=== PATIENT | male | born 1940 | race Caucasian/White ===

== ENCOUNTER 2016-09-26 18:23 | Observation (INO) ==
[2016-09-26] MEDS ORDERED: NITROGLYCERIN 2% OINT 1 INCH/GM PACK TOP STA (19:56)
[2016-09-26] MEDS ORDERED: ALUM/MAG/SIMETH/LIDO VISC 1:1 30 ML BOTTLE PO STA (19:56)
[2016-09-26] MEDS ORDERED: ONDANSETRON 4 MG/2 ML VIAL IV STA (19:56)
[2016-09-26] MEDS ORDERED: ASPIRIN 325 MG TABLET PO STA (19:56)
--- NOTE | 2016-09-26 20:02 | EKG Report ---
Stationary ECG Study [facility] Test Date: 09/26/2016 6:49:16 PM Pat Name: AIMEE OCHOA Department: Room: 265 Gender: M [employer] Specialist: : 1940 Requested by: Desmond Carlisle Order Number: [id number] Reading MD: MARIETTA CHAVEZ Intervals [place] Rate: 65 P: 67 [place]: 200 QRS: -33 QRSD: 117 T: 32 QT: 426 QTc: 437 Interpretive Statements SINUS RHYTHM LEFT AXIS DEVIATION NON-SPECIFIC INTRAVENTRICULAR CONDUCTION DELAY Electronically Signed On 09-27-16 13:45:36 CDT by MARIETTA CHAVEZ [email or web address]
[2016-09-26] MEDS ORDERED: NITROGLYCERIN 2% OINT 1 INCH/GM PACK TOP ONE (20:03)
[2016-09-26] MEDS ORDERED: ONDANSETRON 4 MG/2 ML VIAL ONE (20:03)
[2016-09-26] MEDS ORDERED: ALUM/MAG/SIMETH/LIDO VISC 1:1 30 ML BOTTLE PO ONE (20:03)
[2016-09-26] MEDS ORDERED: ASPIRIN 325 MG TABLET ONE (20:03)
[2016-09-26 21:21] LABS: Basophils # 0.1 10*3/uL (0.0-0.2); Basophils % 1.5 % (0.0-0.8); Eosinophils # 0.5 10*3/uL (0.0-0.87); Eosinophils % 7.7 % (0.00-10.9); Hematocrit 33.7 VOL% (42.0-52.0); Hemoglobin 11.1 GM/DL (14.0-18.0); Immature Granulocytes % 0.2 %; Immature Granulocytes Absolute 0.01 #; Lymphocytes # 1.9 10*3/uL (1.4-4.0); Lymphocytes % 31.9 % (21.2-54.2); Mean Corpuscular HGB Conc 32.9 GM/DL (32-36); Mean Corpuscular Hemoglobin 31 PG (27-34); Mean Corpuscular Volume 94.7 FL (87-102); Mean Platelet Volume 11.8 FL (9.6-12.0); Monocytes # 0.6 10*3/uL (0.11-0.8); Monocytes % 10.5 % (1.7-12.7); Neutrophils # 2.9 10*3/uL (1.4-7.4); Neutrophils % 48.2 % (38.7-73.9); Platelet Count 129 T/CUMM (130-400); Red Blood Count 3.56 MC/CUMM (3.8-5.5); Red Cell Distribution Width 13.4 % (9.3-17.3)
[2016-09-26 21:28] LABS: PT Patient Result 10.5 SECS
[2016-09-26 21:31] LABS: Alanine Aminotransferase 33 U/L (16-61); Albumin 3.7 G/DL (3.4-5.0); Alkaline Phosphatase 100 U/L (45-117); Aspartate Amino Transferase 30 U/L (0-37); Bilirubin,Total < 0.39 MG/DL (0.2-1.0); Blood Urea Nitrogen 12 MG/DL (7-18); Calcium 8.4 MG/DL (8.5-10.1); Glucose 71 MG/DL (74-106); Magnesium 2.2 MG/DL (1.8-2.4); Osmolality,Calculated 265.2 MOS/KG (273-304); Potassium 3.8 MMOL/L (3.5-5.1); Sodium 134 MMOL/L (136-145); Total Protein 7.1 G/DL (6.4-8.3)
[2016-09-26 21:36] LABS: D-Dimer 5.4 MG/L FEU
--- NOTE | 2016-09-26 21:36 | XRay Report ---
Exam: XR chest 1V portable Indication: Midline chest pain Comparison study: 01/05/2016 Findings: Cardiac silhouette is mildly enlarged, similar to prior. Left hemidiaphragm is elevated, similar to prior. Median sternotomy wiring is again noted. Cardiac silhouette and mediastinal contours otherwise appear similar to prior. Minimal central perihilar interstitial prominence and punctate subcentimeter calcific nodular densities appear unchanged. There is no focal consolidation, pneumothorax or pleural effusion identified. Impression: No acute cardiopulmonary process. Chronic interstitial changes and evidence of prior granulomatous disease. Otherwise, no significant change. PROCEDURE INTERPRETED AT [facility] DEPARTMENT OF RADIOLOGY Final Report Signed by: Anthony Christian
[2016-09-26 22:05] LABS: Apearance,Urine CLEAR (Clear); Bilirubin,Urine Negative (Negative); Blood, Urine Negative (Negative); Glucose,Urine (UA) Negative (Negative); Ketones,Urine Negative (Negative); Nitrite,Urine Negative (Negative); Protein,Urine Negative; RBC,Urine 1 /HPF (0-4); Urine Color Straw (Yellow); Urine Specific Gravity 1.003 (1.001-1.035); Urine Urobilinogen < 2.0 EU/DL (0.2-1.0)
--- NOTE | 2016-09-26 22:42 | CT Report ---
Exam: CT chest PE study The total DLP is 261 mGy*cm. Date: 09/26/2016 9:55 PM Indication: Shortness of breath, positive d-dimer, chest pain Comparison: Prior CT PE protocol April 18, 2010 Technical: Images were obtained from the thoracic inlet through the lung bases with 80 cc of Omnipaque 350 with axial and coronal imaging available for review. Dose reduction: This CT exam was performed using one or more of the following dose reduction techniques: Automated exposure control, automated adjustment of the mA and/or KV according to patient size, or use of iterative reconstruction technique. Findings: Pulmonary arteries:Pulmonary arteries are patent and well-opacified with no filling defects to suggest pulmonary emboli. Mediastinum/vessels/lymph nodes: Heart and great vessels appear unremarkable. There is no evidence of pericardial effusion. The aorta and great vessels appear widely patent. There is no adenopathy in the chest. Lungs: Lungs are predominantly clear. Minimal atelectasis is noted within the left lung base. There is also minimal ground glass opacity within the left lung base and minimal infectious/inflammatory tracer not excluded. Upper lungs are clear. There is no pneumothorax. There is no significant pleural effusion. Central airways are patent. Thyroid: Thyroid gland appears within normal limits. No acute abnormality is identified within the visualized upper abdomen. BONES: No acute or suspicious appearing osseous abnormalities are identified. Impression: No acute pulmonary emboli. Minimal left basilar atelectasis and possible adjacent minimal infectious/inflammatory infiltrates. PROCEDURE INTERPRETED AT [facility] DEPARTMENT OF RADIOLOGY Final Report Signed by: Anthony Christian
[2016-09-26] MEDS ORDERED: ENOXAPARIN 100 MG/ML SYRINGE SUBCUT STA (22:58)
[2016-09-26 23:00] LABS: Barbiturates Screen,Urine Positive (Negative); Benzodiazepines Screen,Urine Negative (Negative); Cannabinoid Screen,Urine Negative (Negative); Opiate Screen,Urine Negative (Negative); Phencyclidine Screen,Urine Negative (Negative)
--- NOTE | 2016-09-26 23:12 | Emergency Department Note ---
Naman Douglas Mantricia, am scribing for, and in the presence of, Desmond Shepard MD 19:59. Devyn Douglas Charles R, MD, personally performed the services described in this documentation, ascribed by Natacha Florence in my presence, and it is both accurate and complete 311 . Arrival - Arrival Chief Complaint: Chest Pain Stated Complaint: chest pain ED Nursing Triage Note: C/O CHEST PAIN WITH ONSET AT [facility] 1750 TODAY. +LEFT ARM PAIN +SOB Mode of Arrival: Stretcher Limitations: No Limitations Source: Patient, Significant other, Family Time Seen by Provider: 09/26/16 18:55 - History of Present Illness HPI Narrative: Pt is a 76 y/o white male arriving to ED by EMS with c/o chest pain that onset around 1800 today. Pt also reports LUE pain, right eye pain, and SOB. He states that he was coming from the bathroom taking a bath and as he went to sat in his recliner afterwards, his chest and shoulder began to hurt. He states that at the time his pain was 8/10; however, since then, the pt took NTG and the pain has calmed to 2/10. Pt reports having a bypass in [address] Montoya. In 2004 , pt's EKG was normal, similar to the current situation. He also reports being weak and pallor for about 2 weeks. 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 He has a PMHx of seizures and is currently taking aspirin, but denies blood thinners. Onset (ago): day(s) Consistency: constant Severity: mild Severity scale (1-10): 3 Allergies/Adverse Reactions: Allergies Allergy/AdvReac Type Severity Reaction Status Date / Time carbamazepine [From Tegretol] Allergy ITCHING Verified 01/05/16 10:47 divalproex sodium Allergy Verified 01/05/16 10:47 [From Depakote] Penicillins Allergy Verified 01/05/16 10:47 morphine AdvReac Verified 01/05/16 10:47 Zolpidem [From Ambien] AdvReac Verified 01/05/16 10:47 Home Medications: Home Medications Medication Instructions Recorded Confirmed Type Alendronate Sodium 70 mg PO Q7DAY 01/05/16 09/26/16 History Amiodarone HCl [Pacerone] 200 mg PO DAILY 01/05/16 09/26/16 History Amlodipine Besylate 2.5 mg PO DAILY 01/05/16 09/26/16 History Aspirin EC Tab 81 mg PO DAILY 01/05/16 09/26/16 History Calcium Citrate/Vitamin D3 1 tablet PO BID 01/05/16 09/26/16 History [Calcium Citrate-Vit D3 Tablet] Carvedilol [Coreg] 3.125 mg PO BID 01/05/16 09/26/16 History Levothyroxine Tab [Synthroid Tab] 50 mcg PO DAILY@0700 01/05/16 09/26/16 History Lisinopril 10 mg PO DAILY 01/05/16 09/26/16 History Multivitamin (Centrum) [Centrum 1 tablet PO DAILY 01/05/16 09/26/16 History Tab] Omeprazole [Prilosec] 20 mg PO DAILY 01/05/16 09/26/16 History PHENobarbital [Phenobarbital] 32.4 mg PO DAILY 01/05/16 09/26/16 History PHENobarbital [Phenobarbital] 97.2 mg PO BEDTIME 01/05/16 09/26/16 History Pravastatin [Pravachol] 40 mg PO BEDTIME 01/05/16 09/26/16 History levETIRAcetam [Keppra] 2 tablet PO BID 09/26/16 09/26/16 History Review of System - Review of System 12 point system: reviewed and no additional remarkable complaints except as stated - Review of System Constitutional: Absent: chills, diaphoresis, fever Eyes: Present: pain (right ). Absent: discharge, redness Head/Ears/Nose/Throat: Absent: earache, epistaxis Respiratory: Absent: cough, respiratory distress, wheezing Cardiovascular: Present: chest pain, dyspnea on exertion. Absent: syncope Gastrointestinal: Absent: abdominal pain, nausea, vomiting, diarrhea Genitourinary male: Absent: urgency, dysuria, frequency Musculoskeletal: Present: arm pain. Absent: back pain, lower back pain, leg pain, neck pain Skin: Absent: rash, lesions Neurological: Absent: headache, weakness Psychiatric: Absent: anxiety, depression Medical,Surgical,& Family Hx - Medical History Cardio: History of: CAD, Hypertension, [place] Neurology: History of: Cerebrovascular Accident, Seizures HEENT: History of: Eye Problem, HEENT Problems Musculoskeletal: History of: Amputation, Musculoskeletal Problems (osteomyelitis ) Hematology: No history of: Anemia Other: No history of: Cancer - Surgical History Cardiac Surgeries: Sugical HX of: Femoral-Popliteal Bypass Graft, Carotid Endarterectomy HEENT Surgeries: Surgical HX of: Carotid Endarterectomy Abdominal Surgeries: Surgical HX of: EGD ([id number]) - Family History Family History: Reports;: Family Cancer, Family Heart Disease - Social History Smoking Status: Never smoker Frequency of Alcohol Use: None Type of Drug Use: None Exam Vital Signs: Vital Signs Temperature 97.9 F 09/26/16 18:30 Pulse Rate 66 09/26/16 18:30 Respiratory Rate 19 09/26/16 19:00 Blood Pressure 167/82 09/26/16 18:30 O2 Sat by Pulse Oximetry 98 09/26/16 18:30 - General General appearance: alert, in no apparent distress - Head Head exam: Present: atraumatic, normocephalic, normal inspection - Eye Eye exam: Present: normal appearance, PERRL, EOMI - ENT ENT exam: Present: normal exam, normal oropharynx, mucous membranes moist, TM's normal bilaterally, normal external ear exam - Neck Neck exam: Present: normal inspection, full ROM, trachea midline. Absent: tenderness - Chest Chest inspection: Present: normal inspection, symmetric chest wall rise. Absent : tenderness - Respiratory Respiratory exam: Present: normal lung sounds bilaterally - Cardiovascular Cardiovascular exam: Present: regular rate, normal rhythm, normal heart sounds - Abdominal Exam Abdominal exam: Present: soft, normal bowel sounds. Absent: distention, tenderness, guarding, rebound - Extremities Exam Extremities exam: Present: full ROM, normal capillary refill, other (+1 edema to RLE; left AKA). Absent: tenderness, pedal edema - Back Exam Back exam: Present: normal inspection, full ROM. Absent: tenderness - Neurological Exam Neurological exam: Present: alert, oriented X3, CN II-XII intact, normal gait, reflexes normal - Psychiatric Psychiatric exam: Present: normal affect, normal mood - Skin Skin exam: Present: warm, dry, intact, normal color Course - Consultations Consultation #1: Dr. White will admit patient Time: 23:11 Results - Labs CBC & BMP: 09/26/16 18:52 05/02/17 18:52 Lab Results: I have reviewed the patients labs Disposition Clinical Impression: Chest pain Case discussed with: patient, patient's family Disposition: Still a Patient Condition: Stable Time of Disposition: 22:56
[2016-09-26] MEDS ORDERED: ENOXAPARIN 80 MG/0.8 ML SYRINGE SUBCUT ONE (23:51)
[2016-09-27] MEDS ORDERED: POTASSIUM CHLORIDE 20 MEQ TABLET PO PRN (00:21)
[2016-09-27] MEDS ORDERED: MAGNESIUM SULF RIDER 2 GM in PREMIX 1 EACH IV PRN (00:21)
[2016-09-27] MEDS ORDERED: ONDANSETRON 4 MG/2 ML VIAL IV PRN (00:21)
[2016-09-27] MEDS ORDERED: MAGNESIUM SULF RIDER 4 GM in PREMIX 1 EACH IV PRN (00:21)
[2016-09-27] MEDS: SODIUM CHLORIDE 0.9% 1,000 ML IV SCH ×2 (01:08→09:36)
[2016-09-27] MEDS: NITROGLYCERIN 2% OINT 1 INCH/GM PACK TOP SCH ×3 (01:09→11:03)
[2016-09-27 04:40] LABS: Basophils # 0.1 10*3/uL (0.0-0.2); Basophils % 1.2 % (0.0-0.8); Eosinophils # 0.4 10*3/uL (0.0-0.87); Eosinophils % 5.9 % (0.00-10.9); Hematocrit 33.7 VOL% (42.0-52.0); Hemoglobin 11.1 GM/DL (14.0-18.0); Immature Granulocytes % 0.1 %; Immature Granulocytes Absolute 0.01 #; Lymphocytes # 1.9 10*3/uL (1.4-4.0); Lymphocytes % 27.4 % (21.2-54.2); Mean Corpuscular HGB Conc 32.9 GM/DL (32-36); Mean Corpuscular Hemoglobin 31 PG (27-34); Mean Corpuscular Volume 95.2 FL (87-102); Mean Platelet Volume 11.9 FL (9.6-12.0); Monocytes # 0.7 10*3/uL (0.11-0.8); Neutrophils # 3.7 10*3/uL (1.4-7.4); Neutrophils % 54.4 % (38.7-73.9); Platelet Count 130 T/CUMM (130-400); Red Blood Count 3.54 MC/CUMM (3.8-5.5); Red Cell Distribution Width 13.4 % (9.3-17.3); White Blood Count 6.7 T/CUMM (4-12)
[2016-09-27 05:19] LABS: Albumin 3.3 G/DL (3.4-5.0); Bilirubin,Total 0.5 MG/DL (0.2-1.0); Calcium 8.2 MG/DL (8.5-10.1); Magnesium 2.3 MG/DL (1.8-2.4); Osmolality,Calculated 269.1 MOS/KG (273-304); Potassium 3.8 MMOL/L (3.5-5.1); Risk Ratio 2.9; Total Protein 6.5 G/DL (6.4-8.3); VLDL CHOLESTEROL 25.2 MG/DL
[2016-09-27] MEDS: LEVOTHYROXINE 50 MCG TABLET PO SCH (06:27)
--- NOTE | 2016-09-27 06:46 | EKG Report ---
Stationary ECG Study [facility] Test Date: 09/27/2016 2:55:19 AM Pat Name: AIMEE OCHOA Department: Room: 265 Gender: M [employer] Operator: : 1940 Requested by: Desmond Carlisle Order Number: [id number] Reading MD: MARIETTA CHAVEZ Intervals [place] Rate: 62 P: 67 DC: 207 QRS: -46 QRSD: 112 T: 58 QT: 461 QTc: 465 Interpretive Statements SINUS RHYTHM LEFT AXIS DEVIATION NONSPECIFIC INTRAVENTRICULAR CONDUCTION DELAY NONSPECIFIC T WAVE ABNORMALITY LONG QT INTERVAL Electronically Signed On 09-27-16 13:52:13 CDT by MARIETTA CHAVEZ [email or web address]
--- NOTE | 2016-09-27 08:28 | XRay Report ---
Referring Physician: Desmond Shepard Exam: XR chest 1V portable Date: September 27, 2016 at 6:11 AM Reason: Shortness of breath Comparison: Chest one view portable September 26, 2016 Findings: The cardiac silhouette is again mildly enlarged, and the patient is status post sternotomy. There is persistent mild elevation of the left hemidiaphragm.. There are also mild opacities at the left lung base which are favored to represent atelectasis. No pneumothorax or pleural effusion is identified. The osseous structures appear stable. Impression: There has been no significant change. PROCEDURE INTERPRETED AT [facility] DEPARTMENT OF RADIOLOGY Final Report Signed by: Dr. Kellen Patiño
[2016-09-27] MEDS ORDERED: CLOPIDOGREL 300 MG TABLET PO ONE (08:43)
[2016-09-27] MEDS ORDERED: DIAZEPAM 5 MG TABLET PO ONE (08:45)
[2016-09-27] MEDS ORDERED: diphenhydrAMINE CAP 25 MG CAPSULE PO ONE (08:45)
--- NOTE | 2016-09-27 08:49 | History and Physical Update ---
Sedation H&P Update - History and Physical H&P was reviewed, the patient examined and there: are no changes in the patients condition since last H&P was completed. - Dictation Physical: refer to H&P completed by admitting physician - Physical Exam Mental Status: alert and oriented Heart: regular rate and rhythm Lung: clear to auscultation Abdomen: within normal limits Vitals: within normal limits - Sedation Plan for Sedation: moderate Patient Consent: Procedure disscussed with patient and patinet has consented., Risks and benefits were discussed with patient,including infection,, bleeding, injury to surrounding structures, seizure, temporary nerve, Patient understands and accepts potential risks/benefits and agrees to, proceed. ASA Class: III Airway Assessment: Class II: Soft palate, uvula, fauces visible
[2016-09-27] MEDS ORDERED: OMEPRAZOLE 20 MG CAPSULE PO SCH (09:00)
[2016-09-27] MEDS ORDERED: ASPIRIN EC 81 MG TABLET PO SCH (09:00)
[2016-09-27] MEDS ORDERED: PHENobarbital 30 MG TABLET PO SCH ×2 (09:00→21:00)
[2016-09-27] MEDS: MULTIVITAMIN (CENTRUM) TABLET PO SCH (09:03)
[2016-09-27] MEDS ORDERED: LIDOCAINE 1% 20 ML VIAL ONE (09:03)
[2016-09-27] MEDS: ASPIRIN EC 81 MG TABLET PO SCH (09:04)
[2016-09-27] MEDS: PANTOPRAZOLE 40 MG TABLET PO SCH (09:04)
[2016-09-27] MEDS: LISINOPRIL 10 MG TABLET PO SCH (09:04)
[2016-09-27] MEDS ORDERED: NITROGLYCERIN DRIP 50 MG/250 ML BOTTLE IV ONE (09:04)
[2016-09-27] MEDS: amLODIPine 2.5 MG TABLET PO SCH (09:04)
[2016-09-27] MEDS: CARVEDILOL 3.125 MG TABLET PO SCH ×2 (09:04→20:56)
[2016-09-27] MEDS ORDERED: VERAPAMIL 5 MG/2 ML VIAL ONE (09:04)
[2016-09-27] MEDS ORDERED: HEPARIN/NACL 0.9% 2 UNITS/ML 1,000 ML IV ONE (09:04)
[2016-09-27] MEDS: ENOXAPARIN 80 MG/0.8 ML SYRINGE SUBCUT SCH ×2 (09:04→21:01)
--- NOTE | 2016-09-27 09:04 | Cardiology History & Physical ---
<Niya Berg E - Last Filed: 09/27/16 08:48> Assessment and Plan - Time spent with patient Time spent with patient: Greater than 30 minutes (1) CAD (coronary artery disease) Status: Chronic Assessment and plan: See plan of care listed Current Visit: Yes (2) S/P CABG x 2 Status: Chronic Assessment and plan: See plan of care listed Current Visit: Yes (3) Hypertension Status: Chronic Assessment and plan: See plan of care listed Current Visit: Yes (4) Dyslipidemia Status: Chronic Assessment and plan: See plan of care listed Current Visit: Yes (5) Seizure disorder Status: Chronic Assessment and plan: See plan of care listed Current Visit: No (6) Chest pain Status: Acute Assessment and plan: See plan of care listed Current Visit: Yes (7) Bilateral carotid bruits Status: Acute Assessment and plan: See plan of care listed Current Visit: Yes History of Present Illness Chief complaint: chest pain, known CAD 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 Merrill, 76WM, has risk factors significant for known CAD (S/P CABG February 2004 JACOB - LAD, SVG - PDA), hypertension, HLD. Patient arrived to the ER evaluation of left chest pain which radiated to his left jaw and down his left arm. This occurred while he was working in his garden. He became diaphoretic and short of breath. He took 2 nitroglycerin and eventually got relief. He rates the discomfort as an 8 on a scale to 10 and he is currently chest pain- free. He has noticed over the past year and a decline in his exercise tolerance. While working in his garden this year, he finds that he becomes more short of breath and requires rest frequently. Last year, he did not have these symptoms. His cardiac biomarkers are negative, EKG does not reveal an acute event. Dr. White is present and will await further recommendations from him. ASSESSMENT/PLAN: 1. CHEST PAIN CONCERNING FOR ANGINA - Dr. White has discussed with patient and fmily options for work-up. They prefer [facility]. Will proceed this morning 2. KNOWN CAD S/P CABG 2003 - JACOB - LAD, SVG - PDA. 3. HYPERTENSION - reports usually well-controlled. Adjust medications accordingly during hospital stay. 4. DYSLIPIDEMIA - FLP in the morning. Continue lipid lowering agent 5. SEIZURE DISORDER - No seizure activity in several years 6. CAROTID DISEASE - bilateral bruits noted. Will order carotid US. S/P carotid endarterectomy [facility] 7. PAF - no recent palpitations. Takes Amiodorone. Home Medications Medication Instructions Recorded Confirmed Type Amiodarone HCl [Pacerone] 200 mg PO DAILY 01/05/16 09/26/16 History Amlodipine Besylate 2.5 mg PO DAILY 01/05/16 09/26/16 History Aspirin EC Tab 81 mg PO DAILY 01/05/16 09/26/16 History Calcium Citrate/Vitamin D3 1 tablet PO BID 01/05/16 09/26/16 History [Calcium Citrate-Vit D3 Tablet] Carvedilol [Coreg] 3.125 mg PO BID 01/05/16 09/26/16 History Levothyroxine Tab [Synthroid Tab] 50 mcg PO DAILY@0700 01/05/16 09/26/16 History Lisinopril 10 mg PO DAILY 01/05/16 09/26/16 History Multivitamin (Centrum) [Centrum 1 tablet PO DAILY 01/05/16 09/26/16 History Tab] Omeprazole [Prilosec] 20 mg PO DAILY 01/05/16 09/26/16 History PHENobarbital [Phenobarbital] 32.4 mg PO BEDTIME 01/05/16 09/27/16 History PHENobarbital [Phenobarbital] 97.2 mg PO DAILY 01/05/16 09/27/16 History Pravastatin [Pravachol] 40 mg PO BEDTIME 01/05/16 09/26/16 History levETIRAcetam [Keppra] 2 tablet PO BID 09/26/16 09/26/16 History Allergies Allergy/AdvReac Type Severity Reaction Status Date / Time carbamazepine [From Tegretol] Allergy ITCHING Verified 01/05/16 10:47 divalproex sodium Allergy Verified 01/05/16 10:47 [From Depakote] Penicillins Allergy Verified 01/05/16 10:47 morphine AdvReac Verified 01/05/16 10:47 Zolpidem [From Ambien] AdvReac Verified 01/05/16 10:47 Review of systems: REVIEW OF SYSTEMS: - Constitutional Constitutional: Present: Fatigue. Absent: syncope, anorexia, night sweats - EENT Eyes: Absent: blurry vision, loss of vision, diplopia Ears: Absent: decreased hearing, ear pain, ear discharge - Cardiovascular Cardiovascular: Present: chest pain with exertion, dyspnea on exertion. Denies edema, palpitations. Absent: chest pain with deep breath, claudication - Respiratory Respiratory: Present: GALEANA, denies cough. Absent: wheezing, hemoptysis, change in phlegm color - Gastrointestinal Gastrointestinal: Denies constipation. Absent: abdominal pain, hematemesis, hematochezia, melena, change in bowel habits, nausea - Genitourinary Genitourinary: Absent: difficulty urinating, dysuria, urinary hesitancy, flank pain - Musculoskeletal Musculoskeletal: Present: back pain Absent: joint swelling, muscle cramps, muscle weakness - Neurological Neurological: Present: normal gait with left lower extremity prosthesis without frequent falls. Absent: dizziness, hemiparesis - Psychiatric Psychiatric: Absent: anxiety, depression, difficulty concentrating - Endocrine Endocrine: Absent: cold intolerance, heat intolerance, polyuria, polyphagia, polydipsia - Hematologic/Lymphatic Hematologic/Lymphatic: Present: easy bruising. Absent: easy bleeding -Integumentary Integumentary: Absent: lesions, rashes, skin breakdown Medical,Surgical,& Family Hx - Medical History Cardio: History of: Cardiac Dysrhythmia (Atrial fib), CAD, Hypertension, [place] Neurology: History of: Cerebrovascular Accident, Seizures HEENT: History of: Eye Problem, HEENT Problems Endocrine: History of: Thyroid Disorder Musculoskeletal: History of: Amputation (R leg AKA), Musculoskeletal Problems ( osteomyelitis) Hematology: No history of: Anemia Other: No history of: Cancer - Surgical History Cardiac Surgeries: Sugical HX of: Femoral-Popliteal Bypass Graft, Carotid Endarterectomy Thoracic Surgeries: Patient denies;: Organ Transplant HEENT Surgeries: Surgical HX of: Carotid Endarterectomy Abdominal Surgeries: Surgical HX of: EGD ([id number]) - Family History Family History: Reports;: Family Cancer, Family Heart Disease - Social History Smoking Status: Never smoker Have you smoked in the last 12 months: No Frequency of Alcohol Use: None Type of Drug Use: None Marital Status: Lives With:: Spouse Functional capacity: independent ambulation Cardiology Physical Exam - Constitutional Vitals: Vital Signs Temp Pulse Resp BP Pulse Ox 97.6 F 56 L 20 144/65 96 09/27/16 08:00 09/27/16 08:00 09/27/16 08:00 09/27/16 08:00 09/27/16 08:00 Intake and Output 09/26/16 09/27/16 09/27/16 23:59 07:59 15:59 Output Total 400 / 400 Balance -400 / -400 Output: Urine 400 / 400 Other: Voiding Method Urinal Weight 83.234 kg Patient Weight 09/27/16 23:59 Weight 83.234 kg General: [Appears well with no apparent distress.] [Pleasant and cooperative. ] [Appears comfortable.] HEENT: [PERRL, normocephalic, atraumatic. Mucous membranes moist. No jaundice noted. Conjunctiva moist and clear, sclerae anicteric] Neck: No JVD/HJR, no thyromegaly or lymphadenopathy noted. Bilateral carotid bruits Cardiac: [Regular rate and rhythm.] [No obvious murmur rub or gallop.] Lungs: [Clear to auscultation without accessory muscle use to assist the respiratory pattern.] Not requiring oxygen Abdomen: Soft, bowel sounds normoactive. Nontender and nondistended. No abdominal bruit or thrill noted. No masses noted. Musculoskeletal: No fluid collection. Decreased range of motion is noted. Extremities: No clubbing, cyanosis noted. [ No edema noted.] Upper extremity pulses 2+. Right lower extremity pulse 2+. Left above-knee amputation. Skin: No unusual lesions or rashes. No skin breakdown appreciated. Neuro: Awake, alert and oriented 3. Moves all extremities well without hemiparesis or paralysis. No essential tremor is appreciated. Result/EKG - Labs CBC & BMP: 09/27/16 03:17 09/27/16 03:17 Lab Results: I have reviewed the past 24 hour labs Labs: Laboratory Results - last 24 hr 09/27/16 09/27/16 09/27/16 00:09 03:17 03:17 WBC 6.7 RBC 3.54 L Hgb 11.1 L Hct 33.7 L MCV 95.2 MCH 31 MCHC 32.9 RDW 13.4 Plt Count 130 MPV 11.9 Neut % (Auto) 54.4 Lymph % (Auto) 27.4 [place] % (Auto) 11.0 Eos % (Auto) 5.9 Baso % (Auto) 1.2 H Neut # (Auto) 3.7 Lymph # (Auto) 1.9 [place] # (Auto) 0.7 Eos # (Auto) 0.4 Baso # (Auto) 0.1 Immature Gran % 0.1 Nucleated RBC % 0.0 Immature Gran # 0.01 Nucleated RBCs # 0.00 Sodium Potassium Chloride Carbon Dioxide Anion Gap BUN Creatinine GFR Calculation BUN/Creatinine Ratio Glucose Calculated Osmolality Calcium Magnesium Total Bilirubin AST ALT Alkaline Phosphatase Troponin I 0.042 0.038 B-Natriuretic Peptide Total Protein Albumin Globulin Albumin/Globulin Ratio Triglycerides Cholesterol LDL Cholesterol VLDL Cholesterol HDL Cholesterol Heart Disease Risk Ratio 09/27/16 09/27/16 03:17 03:17 WBC RBC Hgb Hct MCV MCH MCHC RDW Plt Count MPV Neut % (Auto) Lymph % (Auto) [place] % (Auto) Eos % (Auto) Baso % (Auto) Neut # (Auto) Lymph # (Auto) [place] # (Auto) Eos # (Auto) Baso # (Auto) Immature Gran % Nucleated RBC % Immature Gran # Nucleated RBCs # Sodium 135 L Potassium 3.8 Chloride 100 Carbon Dioxide 26 Anion Gap 12.8 BUN 12 Creatinine 0.80 GFR Calculation 101 BUN/Creatinine Ratio 15.00 Glucose 93 Calculated Osmolality 269.1 L Calcium 8.2 L Magnesium 2.3 Total Bilirubin 0.50 AST 30 ALT 32 Alkaline Phosphatase 98 Troponin I B-Natriuretic Peptide 246 H Total Protein 6.5 Albumin 3.3 L Globulin 3.2 Albumin/Globulin Ratio 1.0 L Triglycerides 126 Cholesterol 145 LDL Cholesterol 85.0 VLDL Cholesterol 25.2 HDL Cholesterol 50 Heart Disease Risk Ratio 2.90 - Diagnostic Findings Procedure: Chest x-ray: report reviewed by me, CT - chest: report reviewed by wa - EKG EKG results: interpreted by wa EKG shows: sinus rhythm <Tahmina White - Last Filed: 09/27/16 10:25> Assessment and Plan (1) Unstable angina Status: Acute Current Visit: Yes (2) Bilateral carotid bruits Status: Acute Current Visit: Yes (3) CAD (coronary artery disease) Status: Chronic Current Visit: Yes (4) Dyslipidemia Status: Chronic Current Visit: Yes (5) Hypertension Status: Chronic Current Visit: Yes (6) S/P CABG x 2 Status: Chronic Current Visit: Yes (7) Seizure disorder Status: Chronic Current Visit: No History of Present Illness History of present illness: Mr. Merrill is a 76 year old male Cardiology Physical Exam - Constitutional Vitals: Vital Signs Temp Pulse Resp BP Pulse Ox 97.6 F 56 L 20 144/65 96 09/27/16 08:00 09/27/16 08:00 09/27/16 08:00 09/27/16 08:00 09/27/16 08:00 Intake and Output 09/26/16 09/27/16 09/27/16 23:59 07:59 15:59 Output Total 400 / 400 Balance -400 / -400 Output: Urine 400 / 400 Other: Voiding Method Urinal Weight 83.234 kg Patient Weight 09/27/16 23:59 Weight 83.234 kg Result/EKG - Labs CBC & BMP: 09/27/16 03:17 09/27/16 03:17 Labs: Laboratory Results - last 24 hr 09/27/16 09/27/16 09/27/16 00:09 03:17 03:17 WBC 6.7 RBC 3.54 L Hgb 11.1 L Hct 33.7 L MCV 95.2 MCH 31 MCHC 32.9 RDW 13.4 Plt Count 130 MPV 11.9 Neut % (Auto) 54.4 Lymph % (Auto) 27.4 [place] % (Auto) 11.0 Eos % (Auto) 5.9 Baso % (Auto) 1.2 H Neut # (Auto) 3.7 Lymph # (Auto) 1.9 [place] # (Auto) 0.7 Eos # (Auto) 0.4 Baso # (Auto) 0.1 Immature Gran % 0.1 Nucleated RBC % 0.0 Immature Gran # 0.01 Nucleated RBCs # 0.00 Sodium Potassium Chloride Carbon Dioxide Anion Gap BUN Creatinine GFR Calculation BUN/Creatinine Ratio Glucose Calculated Osmolality Calcium Magnesium Total Bilirubin AST ALT Alkaline Phosphatase Troponin I 0.042 0.038 B-Natriuretic Peptide Total Protein Albumin Globulin Albumin/Globulin Ratio Triglycerides Cholesterol LDL Cholesterol VLDL Cholesterol HDL Cholesterol Heart Disease Risk Ratio 09/27/16 09/27/16 03:17 03:17 WBC RBC Hgb Hct MCV MCH MCHC RDW Plt Count MPV Neut % (Auto) Lymph % (Auto) [place] % (Auto) Eos % (Auto) Baso % (Auto) Neut # (Auto) Lymph # (Auto) [place] # (Auto) Eos # (Auto) Baso # (Auto) Immature Gran % Nucleated RBC % Immature Gran # Nucleated RBCs # Sodium 135 L Potassium 3.8 Chloride 100 Carbon Dioxide 26 Anion Gap 12.8 BUN 12 Creatinine 0.80 GFR Calculation 101 BUN/Creatinine Ratio 15.00 Glucose 93 Calculated Osmolality 269.1 L Calcium 8.2 L Magnesium 2.3 Total Bilirubin 0.50 AST 30 ALT 32 Alkaline Phosphatase 98 Troponin I B-Natriuretic Peptide 246 H Total Protein 6.5 Albumin 3.3 L Globulin 3.2 Albumin/Globulin Ratio 1.0 L Triglycerides 126 Cholesterol 145 LDL Cholesterol 85.0 VLDL Cholesterol 25.2 HDL Cholesterol 50 Heart Disease Risk Ratio 2.90
[2016-09-27] MEDS: CALCIUM (CITRATE)/VITAMIN D 200 MG-125 UNIT TABLET PO SCH ×2 (09:05→20:56)
[2016-09-27] MEDS: AMIODARONE 200 MG TABLET PO SCH (09:05)
[2016-09-27] MEDS ORDERED: MIDAZOLAM 2 MG/2 ML VIAL ONE (09:30)
[2016-09-27] MEDS ORDERED: fentaNYL 100 MCG/2 ML VIAL ONE (09:30)
[2016-09-27] MEDS ORDERED: ENOXAPARIN 60 MG/0.6 ML SYRINGE ONE (09:39)
[2016-09-27] MEDS ORDERED: EPTIFIBATIDE 20,000 MCG/10 ML VIAL ONE (09:56)
[2016-09-27] MEDS ORDERED: ACETAMINOPHEN 325 MG TABLET PO PRN (10:25)
[2016-09-27] MEDS ORDERED: ZALEPLON 5 MG CAPSULE PO PRN (10:25)
--- NOTE | 2016-09-27 10:31 | Cardiac Catheterization ---
Date of Procedure:: 09/27/16 Pre-op Diagnosis: Unstable angina Post-op diagnosis: other (UA secondary to high grade (80%)) Procedure: Procedures: 1. Left heart catheterization resting hemodynamics 2. Selective left and right coronary angiography 3. Saphenous vein graft injection to the PDA 4. Selective left SHAUNA graft injection in situ to the LAD 5. Percutaneous coronary intervention with drug-eluting stent (2.5 x 8 mm science drug-eluting stent) to the proximal portion of the newtok ramus intermedius After signed an informed consent was obtained, the patient was prepped and draped in standard fashion for left radial access. Time out was recorded. 0.5 mL of 1% lidocaine were infiltrated in the skin and subcutaneous tissue overlying the right radial artery and Seldinger technique was utilized with a Angiocath to obtain access to the right radial artery. A [employer] glide wire was then advanced into the midforearm under fluoroscopic guidance. The Angiocath was removed and a 6 Swiss Terumo glide sheath was placed over the Glidewire. The sheath was aspirated and flushed and then 5 mg of verapamil and 200 g of nitroglycerin were given through the sheath. At this time a 6 Swiss JL4 was advanced over the wire in the central aorta the left main coronary was selectively engaged. There was some difficulty reaching the ascending aorta from the angulation of the takeoff of the left subclavian however this was performed and multiple orthogonal views of the left coronary artery were obtained. At this time an exchange length J-wire was used to remove the JL4 catheter and left in the ascending aorta and a JR 4 diagnostic cath was advanced over the wire in the central aorta the right coronary slightly engaged was pulled back in the saphenous vein graft to the PDA was selectively engaged multiple orthogonal views were obtained. The catheter was then pulled back into the left subclavian and selective engagement of the SHAUNA in situ as a graft to the LAD was obtained in multiple orthogonal views. The exchange length wire was then advanced through the JR for catheter repositioned in the a sending aorta the JR4 catheter was removed. The sheath was aspirated and flushed. The room was set up for the intervention mode on the background of 600 mg load of clopidogrel approximately 45 minutes prior to coming to the cath suite a single bolus of Integrilin was given. Lovenox have been given for radial access. At this time an EBU 3.5 guiding cath was advanced over the wire in the central aorta but it was too short for access to the left main with adequate support. He was exchanged over the wire for an EBU 4.0 guiding catheter which went into the ventricle. Ventricular pressure measurements were measured and pullback measurements also performed. The EBU guiding catheter was used to engage the left main with excellent support. At this time a 180 cm [place] blue wire was advanced through the guiding catheter into the distal ramus intermediate. This was followed by a 2.0 x 8 mm apex balloon which was used to make a single inflation to 8 ale held for 19 seconds the predilatation balloon was removed 80 g demonstrated yielding of the lesion at this time a 2.5 x 8 mm Xience Alpine drug-eluting stent was taken to the area of stenosis and inflated to nominal atmospheres of 10 for to help for 21 seconds the stent balloon was removed. Ultimately a 2.5 x 8 mm NC Quantum balloon was taken to the stent and inflated to 16 ale and held stable for 23 seconds. Postdilatation balloon was removed 2 orthogonal views were obtained without the wire. The J-wire was then used to exchange the guide catheter. The sheath was aspirated and flushed The radial saw operator reviewed the films. And a TR band was placed over the glide sheath and used for hemostasis. Total contrast exposure 220 cc of omnipaque Total x-ray exposure: 13.6 min fluoroscopy time and 914 mGy air Kerma Findings: 1. EF not assessed 2. Hemodynamics LV: 108/3 EDP:12 Ao:144/54 3. Left main: Angiographically normal 4: Left anterior descending artery: There is moderate mid LAD atheroma approximately 70% before the anastomosis of the JACOB to the LAD. There is also a proximal lesion that is approximately 40-50%. These lesions are very short. There is competitive flow seen from the JACOB. 5. There is a small but present JACOB to the LAD. Is very difficult to feel from the angulation but there is excellent flow down the vessel. There is no anastomosis stenosis seen. The newtok vessels well visualized on newtok injection as well as the SHAUNA injection 6: Left circumflex artery: Left circumflex is a nondominant vessel insertion primarily is a large OM type distribution. There is very little circumflex in the AV groove. 7: There is a large ramus intermedius that is diffusely diseased in the proximal segment however there is a very focal proximal stenosis of 80+%. It is hazy in the proximal segment but does not appear to have a focal high-grade stenosis. 8: Right coronary artery: 100% occluded in the proximal segment the takeoff the first acute marginal 9: There is a very healthy looking vein graft to the midportion of the right PDA. This supplies the distal PDA and antegradely fills the proximal PDA and posterior lateral branch. There are tandem lesions approximately 40-50% in the proximal PDA they can inhibit flow from the graft to the posterior lateral branch. They do not appear to be severe but is diffusely diseased. Assessment: 1. Unstable angina secondary to high-grade radius intermedius stenosis status post successful PCI with AURA as above 2. Normal resting hemodynamics 3. Small but functioning SHAUNA in situ to the LAD 4. Healthy vein graft to a small PDA with antegrade flow to the posterior lateral branch Plan: 1. Therapeutic lifestyle changes. 2. Medical management and cardiac rehabilitation consultation Implants: 2.5 x 8 mm Xience AURA to the RI Anesthesia: moderate conscious sedation Surgeon / Physician: Tahmina White Zone Supervisor Firearms: none Estimated blood loss: none Specimens: none sent Condition: stable Disposition: floor - Medications / Follow-up
--- NOTE | 2016-09-27 10:55 | EKG Report ---
Stationary ECG Study 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
[2016-09-27] MEDS: levETIRAcetam 500 MG TABLET PO SCH ×2 (11:02→20:56)
--- NOTE | 2016-09-27 14:35 | ECHO Report ---
Roosevelt Merrill Exam Date: 09/27/2016 11:46 Referring Physician: Technologist: Diaan Gregorio Age: 76 Ht (in): 71 Wt (lb): 183 Gender: M Exam Location: [facility] Echo Indications: chest pain, s/p CAGB x2, dyslipidemia, bilateral carotid bruit BP: 144 / 65 HR: 48 Rhythm: bradycardia Technical Quality: average IMPRESSIONS The overal EF is 45% with no clear regional wall motion abnormality. Diastolic paramenters are most consistent with grad 2 diastolic dysfunction or impaired relaxation. Mild tricuspid valve regurgitation. Tricuspid regurgitation velocities suggest a RVSP of 27 mmHg + RAP. Mild aortic valve regurgitation wtih a pressure halftime of 667 msec. MEASUREMENTS (Male / Female) Normal Values 2D ECHO LV Diastolic Diameter PLAX 5.1 cm 4.2 - 5.9 / 3.9 - 5.3 cm LV Systolic Diameter PLAX 3.4 cm LV Fractional Shortening PLAX 32.6 % IVS Diastolic Thickness 1.0 cm 0.6 - 1.0 / 0.6 - 0.9 cm LVPW Diastolic Thickness 1.1 cm 0.6 - 1.0 / 0.6 - 0.9 cm RV Internal Dim ED PLAX 2.8 cm Aortic Root Diameter 2.8 cm LA Systolic Diameter LX 4.5 cm 3.0 - 4.0 / 2.7 - 3.8 cm DOPPLER TR Peak Velocity 261.0 cm/s TR Peak Gradient 27.2 mmHg FINDINGS Left Ventricle The overal EF is 45% with no clear regional wall motion abnormality. Diastolic paramenters are most consistent with grad 2 diastolic dysfunction or impaired relaxation. Right Ventricle Normal right ventricular size. Right Atrium The right atrium is mildly enlarged. Left Atrium Mildly increased left atrial diameter. Mitral Valve Mild mitral valve sclerosis. Mild mitral valve regurgitation. Aortic Valve Mild aortic valve sclerosis. Mild aortic valve regurgitation wtih a pressure halftime of 667 msec. Tricuspid Valve Morphologically normal tricuspid valve. Mild tricuspid valve regurgitation. Tricuspid regurgitation velocities suggest a RVSP of 27 mmHg + RAP. Pulmonic Valve Morphologically normal pulmonic valve. Mild pulmonary valve regurgitation. Pericardium No pericardial effusion. Aorta Normal size aortic root and proximal ascending aorta. Tahmina White (Electronically Signed) Final Date: 27 Sep 2016 14:35
--- NOTE | 2016-09-27 16:03 | Ultrasound Report ---
History: Coronary artery disease with carotid bruit Date: 09/27/2016 Study: Carotid duplex ultrasound Comparison exam: No previous similar currently available Color Doppler, wave form analysis, and grayscale analysis of the cervical carotid arteries was performed. There is mild to moderate partially calcified plaque in either carotid bulb. Waveform analysis shows proper directional flow of the cervical carotid arteries. There is antegrade flow in either vertebral artery. The distal right ICA measures 5.5 mm diameter; the left measures 5.5 mm diameter. Peak systolic velocities are as follows: Right CCA 74 cm/s Right ICA 103 cm/s Right ECA 48 cm/s Right vertebral 46 cm/s Right IC/CC ratio 1.4 Left CCA 67 cm/s Left ICA 97 cm/s Left ECA 121 cm/s Left vertebral 42 cm/s Left IC/CC ratio 1.4 There is 0-15% diameter reduction narrowing of the right and 16-49% of the left internal carotid artery using indirect NASCET criteria. Ultrasound images were captured and archived. Impression: No hemodynamically significant internal carotid artery stenosis PROCEDURE INTERPRETED AT [facility] DEPARTMENT OF RADIOLOGY Final Report Signed by: Dr. Amarilys Brizuela
[2016-09-27] MEDS ORDERED: PRAVASTATIN 40 MG TABLET PO SCH (21:00)
[2016-09-28 04:51] LABS: Basophils # 0.1 10*3/uL (0.0-0.2); Basophils % 1.1 % (0.0-0.8); Eosinophils # 0.4 10*3/uL (0.0-0.87); Eosinophils % 5.9 % (0.00-10.9); Hematocrit 33.3 VOL% (42.0-52.0); Hemoglobin 11.1 GM/DL (14.0-18.0); Immature Granulocytes % 0.3 %; Immature Granulocytes Absolute 0.02 #; Lymphocytes # 1.6 10*3/uL (1.4-4.0); Lymphocytes % 25.2 % (21.2-54.2); Mean Corpuscular HGB Conc 33.3 GM/DL (32-36); Mean Corpuscular Hemoglobin 31 PG (27-34); Mean Corpuscular Volume 93.5 FL (87-102); Mean Platelet Volume 11.6 FL (9.6-12.0); Monocytes # 0.6 10*3/uL (0.11-0.8); Monocytes % 9.7 % (1.7-12.7); Neutrophils # 3.6 10*3/uL (1.4-7.4); Neutrophils % 57.8 % (38.7-73.9); Platelet Count 133 T/CUMM (130-400); Red Blood Count 3.56 MC/CUMM (3.8-5.5); Red Cell Distribution Width 13.5 % (9.3-17.3); White Blood Count 6.3 T/CUMM (4-12)
[2016-09-28 05:21] LABS: Calcium 8.1 MG/DL (8.5-10.1); Magnesium 2.3 MG/DL (1.8-2.4); Osmolality,Calculated 275.5 MOS/KG (273-304)
[2016-09-28 05:31] LABS: Calcium 8.2 MG/DL (8.5-10.1); Osmolality,Calculated 275.5 MOS/KG (273-304); Potassium 4.1 MMOL/L (3.5-5.1); Risk Ratio 3.06; VLDL CHOLESTEROL 14.8 MG/DL
--- NOTE | 2016-09-28 06:44 | EKG Report ---
Stationary ECG Study [facility] Test Date: 09/28/2016 6:43:48 AM Pat Name: AIMEE OCHOA Department: Room: 265 Gender: M Oral Surgery Assistant: RICH : 1940 Requested by: Laura Calix Order Number: [id number] Santos MD: IOANA ZAMARRIPA Intervals [place] Rate: 67 P: 66 NH: 190 QRS: 126 QRSD: 117 T: -13 QT: 428 QTc: 444 Interpretive Statements SINUS RHYTHM WITH OCCASIONAL SUPRAVENTRICULAR PREMATURE COMPLEXES Electronically Signed On 09-29-16 18:00:24 CDT by IOANA ZAMARRIPA [email or web address]
[2016-09-28] MEDS: LEVOTHYROXINE 50 MCG TABLET PO SCH (06:50)
[2016-09-28 08:07] VITALS: BP 156/72
--- NOTE | 2016-09-28 08:17 | Discharge Summary ---
Hospital Course - Hospital Course Hospital Course: Mr. Merrill is very pleasant 68-year-old gentleman patient of Dr. Robb Marks who came in with what sounded like typical angina. The patient has known coronary disease had coronary bypass grafting in 2003. He underwent left heart catheterization selective coronary angiography and received percutaneous coronary mention of the proximal ramus intermedius with a 2.5 x 8 mm Xience drug -eluting stent with excellent result. He was preloaded with clopidogrel started on clopidogrel post therapy. Access was the left radial the patient had no postprocedure complications. He was discharged home on the a.m. of 2016 he will follow with Dr. Marks in 2 weeks. Prescriptions were E scribe to [facility] on spring. Both labs and radial access site looks good the morning of discharge. Other studies the patient had while in the hospital was transthoracic echo shows ejection fraction approximately 45% please see that report in the EHR. Also because of bilateral carotid bruits he had carotid Dopplers which showed 0- 15% on the right and 16-49% on the left. These were asymptomatic. - Time spent with patient Time with patient DS: Less than 30 minutes Diagnosis - Discharge Diagnosis (1) Unstable angina Status: Acute (2) Bilateral carotid bruits Status: Acute (3) CAD (coronary artery disease) Status: Chronic (4) Dyslipidemia Status: Chronic (5) Hypertension Status: Chronic (6) S/P CABG x 2 Status: Chronic (7) Seizure disorder Status: Chronic Specialty Discharge - Follow Up or Referrals Follow up with: Reymundo Marks MD [Physician] - 2 Weeks (ECG) Discharge Plan - Discharge Data Disposition: Disch To Home/Self Care Condition at Discharge: Stable Discharge Diet: advance to your usual diet Activity: resume usual activities as tolerated Hygiene: no restrictions Weight Bearing at Discharge: full weight bearing Driving: no restrictions Contact your physician if you experience:: fever over 101, Difficulty voiding, Redness or swelling, Nausea/Vomiting, Shortness of breath, Bleeding, pain uncontrolled by pain medications - Discharge Medications New Aspirin EC Tab 81 mg PO DAILY tablet Nitroglycerin Sl Tab [Nitrostat] 0.4 mg SL Q5M PRN #25 tablet PRN Reason: Chest Pain Continue Aspirin EC Tab 81 mg PO DAILY Levothyroxine Tab [Synthroid Tab] 50 mcg PO DAILY@0700 Omeprazole [Prilosec] 20 mg PO DAILY Pravastatin [Pravachol] 40 mg PO BEDTIME Amiodarone HCl [Pacerone] 200 mg PO DAILY Carvedilol [Coreg] 3.125 mg PO BID Lisinopril 10 mg PO DAILY PHENobarbital [Phenobarbital] 32.4 mg PO BEDTIME Multivitamin (Centrum) [Centrum Tab] 1 tablet PO DAILY Calcium Citrate/Vitamin D3 [Calcium Citrate-Vit D3 Tablet] 1 tablet PO BID Amlodipine Besylate 2.5 mg PO DAILY PHENobarbital [Phenobarbital] 97.2 mg PO DAILY levETIRAcetam [Keppra] 2 tablet PO BID Clopidogrel [Plavix] 75 mg PO DAILY #90 tablet - Follow Up or Referral - Forms/Instructions Instructions: Left Heart Catheterization (DC), Heart Healthy Diet (GEN), Coronary Intravascular Stent Placement, Rug Cutter Helper (GEN) Exam - Constitutional Vitals: Period Temp Pulse Resp BP Sys/Agrawal Pulse Ox Last 24 Hr 97.1 F-99.7 F 48-67 16-20 120-156/56-74 93-100 General appearance: normal weight - Head Head exam: Present: normal inspection - Eye Pupils: Present: EVGENY - ENT ENT exam: Present: normal exam - Neck Neck exam: Present: other (Bilateral bruit) - Respiratory Respiratory exam: Present: clear to auscultation bilaterally - Cardiovascular Cardiovascular exam: Present: regular rate and rhythm (No gallop) - GI/Abdominal GI/Abdominal exam: Present: normal bowel sounds - Extremities Exam Extremities exam: Present: other (Status post BKA. Cath site looks good) - Back Exam Back exam: Present: normal inspection - Neurological Exam Neurological exam: Present: alert, oriented X3 - Psychiatric Psychiatric exam: Present: normal affect, normal mood - Skin Skin exam: Present: normal color, warm, dry Discharge Results Procedures and tests throughout hospitalization: 1. Left heart catheterization resting hemodynamics 2. Selective left and right coronary angiography 3. Saphenous vein graft injection to the PDA 4. Selective left SHAUNA graft injection in situ to the LAD 5. Percutaneous coronary intervention with drug-eluting stent (2.5 x 8 mm science drug-eluting stent) to the proximal portion of the [place] ramus intermedius Labs on day of discharge: Labs from last 24 hours 09/28/16 09/28/16 09/28/16 04:12 04:12 04:12 WBC 6.3 RBC 3.56 L Hgb 11.1 L Hct 33.3 L MCV 93.5 MCH 31 MCHC 33.3 RDW 13.5 Plt Count 133 MPV 11.6 Neut % (Auto) 57.8 Lymph % (Auto) 25.2 [place] % (Auto) 9.7 Eos % (Auto) 5.9 Baso % (Auto) 1.1 H Neut # (Auto) 3.6 Lymph # (Auto) 1.6 [place] # (Auto) 0.6 Eos # (Auto) 0.4 Baso # (Auto) 0.1 Immature Gran % 0.3 Nucleated RBC % 0.0 Immature Gran # 0.02 Nucleated RBCs # 0.00 Sodium 139 139 Potassium 4.0 4.1 Chloride 104 103 Carbon Dioxide 29 29 Anion Gap 10.0 11.1 BUN 12 12 Creatinine 1.10 1.00 GFR Calculation 75 84 BUN/Creatinine Ratio 10.00 12.00 Glucose 85 85 Calculated Osmolality 275.5 275.5 Calcium 8.1 L 8.2 L Magnesium 2.3 Triglycerides 74 Cholesterol 147 LDL Cholesterol 85.0 VLDL Cholesterol 14.8 HDL Cholesterol 48 Heart Disease Risk Ratio 3.06 DS: Provider Date of admission: 09/26/16 23:12 Primary care physician: Yrn Levine MD Attending physician on admission: Tahmina White DO Consults: 09/27/16 10:25 Consult to Cardiac Rehabilitation [CONS] Routine Reason for Cardiac Rehabilitation: Risk Factor Modification Discharging clinician: Tahmina White DO
[2016-09-28] MEDS: ENOXAPARIN 80 MG/0.8 ML SYRINGE SUBCUT SCH (08:21)
[2016-09-28] MEDS: MULTIVITAMIN (CENTRUM) TABLET PO SCH (08:21)
[2016-09-28] MEDS: ASPIRIN EC 81 MG TABLET PO SCH (08:21)
[2016-09-28] MEDS: LISINOPRIL 10 MG TABLET PO SCH (08:21)
[2016-09-28] MEDS: levETIRAcetam 500 MG TABLET PO SCH (08:21)
[2016-09-28] MEDS: PHENobarbital 30 MG TABLET PO SCH ×2 (08:22→08:24)
[2016-09-28] MEDS: AMIODARONE 200 MG TABLET PO SCH (08:22)
[2016-09-28] MEDS: amLODIPine 2.5 MG TABLET PO SCH (08:22)
[2016-09-28] MEDS: CARVEDILOL 3.125 MG TABLET PO SCH (08:22)
[2016-09-28] MEDS: PANTOPRAZOLE 40 MG TABLET PO SCH (08:22)
[2016-09-28] MEDS: CALCIUM (CITRATE)/VITAMIN D 200 MG-125 UNIT TABLET PO SCH (08:28)
[2016-09-28] MEDS ORDERED: CLOPIDOGREL 75 MG TABLET PO SCH (09:00)
[2016-09-28] MEDS ORDERED: PHENobarbital 30 MG TABLET PO SCH (21:00)
[2016-10-03] MEDS ORDERED: NON-FORMULARY MEDICATION (Alendronate Sodium [Alendronate Sodium] 70 MG) PO SCH (09:00)
== END 2016-09-28 10:08 | disposition home or self-care (01) ==
LOC: EDUNIT# → EDBD → N.ED 18:23 → N.EDINP 23:12 → INTOOBSV 23:12 → N.TELES 23:39
PROVIDERS: ADMIT Internal Medicine Cardiovascular Disease; ATTEND Internal Medicine Cardiovascular Disease

== ENCOUNTER 2018-07-25 10:48 | Inpatient (IN) ==
[2018-07-25 11:50] LABS: Basophils # 0.1 10*3/uL (0.0-0.2); Eosinophils # 0.2 10*3/uL (0.0-0.87); Eosinophils % 3.5 % (0.00-10.9); Hematocrit 29.5 VOL% (42.0-52.0); Hemoglobin 9.2 GM/DL (14.0-18.0); Immature Granulocytes % 0.4 %; Immature Granulocytes Absolute 0.02 #; Lymphocytes # 1.1 10*3/uL (1.4-4.0); Lymphocytes % 20.8 % (21.2-54.2); Mean Corpuscular HGB Conc 31.2 GM/DL (32-36); Mean Corpuscular Hemoglobin 29 PG (27-34); Mean Corpuscular Volume 93.7 FL (87-102); Mean Platelet Volume 10.8 FL (9.6-12.0); Monocytes # 0.6 10*3/uL (0.11-0.8); Neutrophils # 3.3 10*3/uL (1.4-7.4); Neutrophils % 63.3 % (38.7-73.9); Platelet Count 182 T/CUMM (130-400); Red Blood Count 3.15 MC/CUMM (3.8-5.5); Red Cell Distribution Width 14.4 % (9.3-17.3); White Blood Count 5.2 T/CUMM (4-12)
[2018-07-25 12:02] LABS: PT Patient Result 10.9 SECS
[2018-07-25 12:14] LABS: Albumin 3.2 G/DL (3.4-5.0); Bilirubin,Total 0.8 MG/DL (0.2-1.0); Calcium 8.2 MG/DL (8.5-10.1); Osmolality,Calculated 275.5 MOS/KG (273-304); Total Protein 7.1 G/DL (6.4-8.3)
[2018-07-25] MEDS ORDERED: ACETAMINOPHEN 325 MG TABLET PO PRN (12:45)
[2018-07-25] MEDS ORDERED: ONDANSETRON 4 MG/2 ML VIAL IV PRN (12:45)
[2018-07-25 15:23] LABS: Troponin I 0.648 NG/ML (0.00-0.045)
[2018-07-25] MEDS ORDERED: PANTOPRAZOLE 40 MG TABLET PO PRN (16:03)
[2018-07-25] MEDS ORDERED: NITROGLYCERIN SL 0.4 MG TABLET SL PRN (16:03)
[2018-07-25 17:29] LABS: Troponin I 0.859 NG/ML (0.00-0.045)
[2018-07-25] MEDS ORDERED: ENOXAPARIN 60 MG/0.6 ML SYRINGE SUBCUT ONE (19:57)
[2018-07-25] MEDS: levETIRAcetam 500 MG TABLET PO SCH (20:35)
[2018-07-25] MEDS: DOCUSATE SODIUM 100 MG CAPSULE PO SCH (20:36)
[2018-07-25] MEDS: CALCIUM (CARBONATE)/VITAMIN D 600 MG-400 UNIT TABLET PO SCH (20:36)
[2018-07-25] MEDS ORDERED: PHENobarbital 30 MG TABLET PO SCH (21:00)
[2018-07-25] MEDS ORDERED: SIMVASTATIN 20 MG TABLET PO SCH (21:00)
[2018-07-26] MEDS ORDERED: LEVOTHYROXINE 50 MCG TABLET PO SCH (06:30)
[2018-07-26 07:38] LABS: Basophils # 0.1 10*3/uL (0.0-0.2); Basophils % 1.2 % (0.0-0.8); Eosinophils # 0.2 10*3/uL (0.0-0.87); Eosinophils % 3.7 % (0.00-10.9); Hematocrit 29.4 VOL% (42.0-52.0); Hemoglobin 9.1 GM/DL (14.0-18.0); Immature Granulocytes % 0.4 %; Immature Granulocytes Absolute 0.02 #; Lymphocytes # 1.3 10*3/uL (1.4-4.0); Lymphocytes % 23.3 % (21.2-54.2); Mean Corpuscular Hemoglobin 29 PG (27-34); Mean Corpuscular Volume 93.6 FL (87-102); Mean Platelet Volume 10.5 FL (9.6-12.0); Monocytes # 0.6 10*3/uL (0.11-0.8); Monocytes % 10.1 % (1.7-12.7); Neutrophils # 3.5 10*3/uL (1.4-7.4); Neutrophils % 61.3 % (38.7-73.9); Platelet Count 172 T/CUMM (130-400); Red Blood Count 3.14 MC/CUMM (3.8-5.5); Red Cell Distribution Width 14.6 % (9.3-17.3); White Blood Count 5.6 T/CUMM (4-12)
[2018-07-26 07:53] LABS: Calcium 8.8 MG/DL (8.5-10.1); Osmolality,Calculated 275.7 MOS/KG (273-304); Potassium 4.1 MMOL/L (3.5-5.1)
[2018-07-26 08:19] VITALS: BP 172/81
[2018-07-26] MEDS: CALCIUM (CARBONATE)/VITAMIN D 600 MG-400 UNIT TABLET PO SCH (08:19)
[2018-07-26] MEDS: levETIRAcetam 500 MG TABLET PO SCH (08:20)
[2018-07-26] MEDS: DOCUSATE SODIUM 100 MG CAPSULE PO SCH (08:20)
[2018-07-26] MEDS ORDERED: AMIODARONE 200 MG TABLET PO SCH (09:00)
[2018-07-26] MEDS ORDERED: ASPIRIN EC 81 MG TABLET PO SCH (09:00)
[2018-07-26] MEDS ORDERED: LISINOPRIL 10 MG TABLET PO SCH (09:00)
[2018-07-26] MEDS ORDERED: MULTIVITAMIN (CENTRUM) TABLET PO SCH (09:00)
[2018-07-26] MEDS ORDERED: CARVEDILOL 3.125 MG TABLET PO SCH (09:00)
[2018-07-26] MEDS ORDERED: FERROUS SULFATE 325 MG TABLET PO SCH (09:00)
[2018-07-26] MEDS ORDERED: PANTOPRAZOLE 40 MG TABLET PO SCH (09:00)
[2018-07-26] MEDS ORDERED: PHENobarbital 30 MG TABLET PO SCH (12:00)
[2018-07-31] MEDS ORDERED: Alendronate [Fosamax] 70 MG PO SCH (09:00)
== END 2018-07-26 10:30 | disposition home or self-care (01) | DRG 310 ==
LOC: EDBD → EDUNIT# → N.ED 10:48 → N.EDINP 12:42 → N.TELEN 15:58
PROVIDERS: ADMIT Family Medicine; ATTEND Family Medicine

== ENCOUNTER 2018-11-04 12:26 | Inpatient (IN) ==
[2018-11-04] MEDS ORDERED: FUROSEMIDE 100 MG/10 ML VIAL IV STA (13:06)
[2018-11-04] MEDS ORDERED: ONDANSETRON 4 MG/2 ML VIAL IV STA (13:06)
[2018-11-04 14:08] LABS: Basophils # 0.1 10*3/uL (0.0-0.2); Basophils % 0.9 % (0.0-0.8); Eosinophils # 0.2 10*3/uL (0.0-0.87); Eosinophils % 2.8 % (0.00-10.9); Hematocrit 31.6 VOL% (42.0-52.0); Hemoglobin 9.6 GM/DL (14.0-18.0); Immature Granulocytes % 0.4 %; Immature Granulocytes Absolute 0.02 #; Lymphocytes % 19.2 % (21.2-54.2); Mean Corpuscular HGB Conc 30.4 GM/DL (32-36); Mean Corpuscular Volume 95.5 FL (87-102); Mean Platelet Volume 10.8 FL (9.6-12.0); Monocytes % 12.3 % (1.7-12.7); Neutrophils % 64.4 % (38.7-73.9); Platelet Count 206 T/CUMM (130-400); Red Blood Count 3.31 MC/CUMM (3.8-5.5); Red Cell Distribution Width 15.9 % (9.3-17.3); White Blood Count 5.3 T/CUMM (4-12)
[2018-11-04 14:14] LABS: INR 1.1; PT Patient Result 11.4 SECS
[2018-11-04 14:32] LABS: Alanine Aminotransferase 40 U/L (16-61); Albumin 3.1 G/DL (3.4-5.0); Alkaline Phosphatase 212 U/L (45-117); Aspartate Amino Transferase 41 U/L (0-37); Blood Urea Nitrogen 13 MG/DL (7-18); Calcium 8.4 MG/DL (8.5-10.1); Glucose 85 MG/DL (74-106); Osmolality,Calculated 273.7 MOS/KG (273-304); Total Protein 7.5 G/DL (6.4-8.3)
[2018-11-04 16:13] LABS: Apearance,Urine CLEAR (Clear); Bilirubin,Urine Negative (Negative); Blood, Urine Negative (Negative); Glucose,Urine (UA) Negative (Negative); Ketones,Urine Negative (Negative); Nitrite,Urine Negative (Negative); Protein,Urine Negative; RBC,Urine 1 /HPF (0-4); Urine Color Colorless (Yellow); Urine Specific Gravity 1.004 (1.001-1.035); Urine Urobilinogen < 2.0 EU/DL (0.2-1.0)
[2018-11-04 22:38] LABS: Troponin I 0.065 NG/ML (0.00-0.045)
[2018-11-05] MEDS ORDERED: ONDANSETRON 4 MG/2 ML VIAL IV PRN (03:22)
[2018-11-05] MEDS ORDERED: DOCUSATE SODIUM 100 MG CAPSULE PO SCH (03:22)
[2018-11-05] MEDS ORDERED: ACETAMINOPHEN 325 MG TABLET PO PRN (03:22)
[2018-11-05] MEDS ORDERED: NITROGLYCERIN SL 0.4 MG TABLET SL PRN (03:22)
[2018-11-05 05:07] LABS: Basophils % 0.7 % (0.0-0.8); Eosinophils # 0.2 10*3/uL (0.0-0.87); Eosinophils % 2.8 % (0.00-10.9); Hematocrit 29.4 VOL% (42.0-52.0); Hemoglobin 9.2 GM/DL (14.0-18.0); Immature Granulocytes % 0.2 %; Immature Granulocytes Absolute 0.01 #; Lymphocytes # 0.9 10*3/uL (1.4-4.0); Lymphocytes % 16.9 % (21.2-54.2); Mean Corpuscular HGB Conc 31.3 GM/DL (32-36); Mean Corpuscular Volume 93.6 FL (87-102); Mean Platelet Volume 11.2 FL (9.6-12.0); Neutrophils % 67.4 % (38.7-73.9); Platelet Count 193 T/CUMM (130-400); Red Blood Count 3.14 MC/CUMM (3.8-5.5); Red Cell Distribution Width 16.2 % (9.3-17.3); White Blood Count 5.4 T/CUMM (4-12)
[2018-11-05 05:45] LABS: Albumin 2.9 G/DL (3.4-5.0); Bilirubin,Total 0.5 MG/DL (0.2-1.0); Calcium 8.5 MG/DL (8.5-10.1); Osmolality,Calculated 278.4 MOS/KG (273-304); Total Protein 6.9 G/DL (6.4-8.3)
[2018-11-05] MEDS: LEVOTHYROXINE 50 MCG TABLET PO SCH (06:30)
[2018-11-05] MEDS ORDERED: POTASSIUM CHLORIDE 20 MEQ/15 ML UDCUP PER TUBE PRN (07:47)
[2018-11-05] MEDS: LISINOPRIL 20 MG TABLET PO SCH (08:56)
[2018-11-05] MEDS: CARVEDILOL 3.125 MG TABLET PO SCH ×2 (08:56→22:03)
[2018-11-05] MEDS: FERROUS SULFATE 325 MG TABLET PO SCH (08:56)
[2018-11-05] MEDS: DOCUSATE SODIUM 100 MG CAPSULE PO SCH ×2 (08:56→23:50)
[2018-11-05] MEDS: MULTIVITAMIN (CENTRUM) TABLET PO SCH (08:56)
[2018-11-05] MEDS: ASPIRIN EC 81 MG TABLET PO SCH (08:56)
[2018-11-05] MEDS: POTASSIUM CHLORIDE 20 MEQ/15 ML UDCUP PO SCH ×2 (08:57→22:04)
[2018-11-05] MEDS: PANTOPRAZOLE 40 MG TABLET PO SCH (08:59)
[2018-11-05] MEDS: AMIODARONE 200 MG TABLET PO SCH ×2 (09:08→22:03)
[2018-11-05] MEDS: levETIRAcetam 500 MG TABLET PO SCH ×2 (13:30→22:03)
[2018-11-05] MEDS: PHENobarbital 30 MG TABLET PO SCH ×2 (13:30→22:02)
[2018-11-05] MEDS: CALCIUM (CARBONATE)/VITAMIN D 600 MG-400 UNIT TABLET PO SCH (17:29)
[2018-11-05] MEDS: FUROSEMIDE 40 MG/4 ML VIAL IV SCH (17:30)
[2018-11-05] MEDS: SIMVASTATIN 20 MG TABLET PO SCH (22:03)
[2018-11-06 04:52] LABS: Basophils # 0.1 10*3/uL (0.0-0.2); Basophils % 0.8 % (0.0-0.8); Eosinophils # 0.2 10*3/uL (0.0-0.87); Eosinophils % 2.6 % (0.00-10.9); Hematocrit 29.2 VOL% (42.0-52.0); Hemoglobin 9.1 GM/DL (14.0-18.0); Immature Granulocytes % 0.3 %; Immature Granulocytes Absolute 0.02 #; Lymphocytes # 0.9 10*3/uL (1.4-4.0); Lymphocytes % 12.7 % (21.2-54.2); Mean Corpuscular HGB Conc 31.2 GM/DL (32-36); Mean Corpuscular Volume 93.9 FL (87-102); Mean Platelet Volume 11.4 FL (9.6-12.0); Monocytes % 10.7 % (1.7-12.7); Neutrophils % 72.9 % (38.7-73.9); Platelet Count 211 T/CUMM (130-400); Red Blood Count 3.11 MC/CUMM (3.8-5.5); Red Cell Distribution Width 15.9 % (9.3-17.3); White Blood Count 7.2 T/CUMM (4-12)
[2018-11-06 05:14] LABS: Calcium 8.5 MG/DL (8.5-10.1)
[2018-11-06] MEDS: LEVOTHYROXINE 50 MCG TABLET PO SCH (06:45)
[2018-11-06] MEDS: MULTIVITAMIN (CENTRUM) TABLET PO SCH (09:03)
[2018-11-06] MEDS: CARVEDILOL 3.125 MG TABLET PO SCH ×2 (09:03→20:57)
[2018-11-06] MEDS: DOCUSATE SODIUM 100 MG CAPSULE PO SCH ×2 (09:03→20:58)
[2018-11-06] MEDS: LISINOPRIL 20 MG TABLET PO SCH ×2 (09:03→20:57)
[2018-11-06] MEDS: levETIRAcetam 500 MG TABLET PO SCH ×2 (09:03→20:57)
[2018-11-06] MEDS: AMIODARONE 200 MG TABLET PO SCH ×2 (09:03→20:57)
[2018-11-06] MEDS: PANTOPRAZOLE 40 MG TABLET PO SCH (09:03)
[2018-11-06] MEDS: FERROUS SULFATE 325 MG TABLET PO SCH (09:03)
[2018-11-06] MEDS: ASPIRIN EC 81 MG TABLET PO SCH (09:03)
[2018-11-06] MEDS: POTASSIUM CHLORIDE 20 MEQ/15 ML UDCUP PO SCH ×2 (09:04→20:58)
[2018-11-06] MEDS: FUROSEMIDE 40 MG/4 ML VIAL IV SCH ×2 (09:04→15:21)
[2018-11-06] MEDS: LACTULOSE 20 GM/30 ML UDCUP PO SCH ×3 (10:15→20:58)
[2018-11-06] MEDS: PHENobarbital 30 MG TABLET PO SCH ×2 (11:27→20:57)
[2018-11-06] MEDS: CALCIUM (CARBONATE)/VITAMIN D 600 MG-400 UNIT TABLET PO SCH (17:16)
[2018-11-06] MEDS: SIMVASTATIN 20 MG TABLET PO SCH (20:57)
[2018-11-06] MEDS ORDERED: NON-FORMULARY MEDICATION (Alendronate 70 MG) PO SCH (21:53)
[2018-11-07] MEDS: LEVOTHYROXINE 50 MCG TABLET PO SCH (06:02)
[2018-11-07 06:24] LABS: Basophils # 0.1 10*3/uL (0.0-0.2); Basophils % 1.1 % (0.0-0.8); Eosinophils # 0.3 10*3/uL (0.0-0.87); Eosinophils % 4.5 % (0.00-10.9); Hematocrit 30.5 VOL% (42.0-52.0); Hemoglobin 9.8 GM/DL (14.0-18.0); Immature Granulocytes % 0.3 %; Immature Granulocytes Absolute 0.02 #; Lymphocytes # 1.2 10*3/uL (1.4-4.0); Lymphocytes % 18.6 % (21.2-54.2); Mean Corpuscular HGB Conc 32.1 GM/DL (32-36); Mean Corpuscular Volume 92.7 FL (87-102); Mean Platelet Volume 11.3 FL (9.6-12.0); Monocytes % 11.8 % (1.7-12.7); Neutrophils % 63.7 % (38.7-73.9); Platelet Count 224 T/CUMM (130-400); Red Blood Count 3.29 MC/CUMM (3.8-5.5); Red Cell Distribution Width 16.1 % (9.3-17.3); White Blood Count 6.4 T/CUMM (4-12)
[2018-11-07 06:51] LABS: Calcium 9.1 MG/DL (8.5-10.1); Osmolality,Calculated 276.7 MOS/KG (273-304)
[2018-11-07] MEDS: APIXABAN 2.5 MG TABLET PO SCH ×2 (09:29→23:35)
[2018-11-07] MEDS: LISINOPRIL 20 MG TABLET PO SCH ×2 (09:30→23:35)
[2018-11-07] MEDS: levETIRAcetam 500 MG TABLET PO SCH ×2 (09:30→23:34)
[2018-11-07] MEDS: FERROUS SULFATE 325 MG TABLET PO SCH (09:31)
[2018-11-07] MEDS: AMIODARONE 200 MG TABLET PO SCH ×2 (09:31→23:36)
[2018-11-07] MEDS: DOCUSATE SODIUM 100 MG CAPSULE PO SCH ×2 (09:31→23:35)
[2018-11-07] MEDS: ASPIRIN EC 81 MG TABLET PO SCH (09:31)
[2018-11-07] MEDS: MULTIVITAMIN (CENTRUM) TABLET PO SCH (09:31)
[2018-11-07] MEDS: CARVEDILOL 3.125 MG TABLET PO SCH ×2 (09:31→23:36)
[2018-11-07] MEDS: POTASSIUM CHLORIDE 20 MEQ/15 ML UDCUP PO SCH ×2 (09:32→23:40)
[2018-11-07] MEDS: PANTOPRAZOLE 40 MG TABLET PO SCH (09:32)
[2018-11-07] MEDS: LACTULOSE 20 GM/30 ML UDCUP PO SCH ×3 (09:32→23:36)
[2018-11-07] MEDS: FUROSEMIDE 40 MG/4 ML VIAL IV SCH (09:42)
[2018-11-07] MEDS: PHENobarbital 30 MG TABLET PO SCH ×2 (12:01→23:35)
[2018-11-07] MEDS: CALCIUM (CARBONATE)/VITAMIN D 600 MG-400 UNIT TABLET PO SCH (17:25)
[2018-11-07] MEDS: SIMVASTATIN 20 MG TABLET PO SCH (23:36)
[2018-11-08 06:22] LABS: Basophils # 0.1 10*3/uL (0.0-0.2); Eosinophils # 0.3 10*3/uL (0.0-0.87); Eosinophils % 3.4 % (0.00-10.9); Hemoglobin 11.3 GM/DL (14.0-18.0); Immature Granulocytes % 0.2 %; Immature Granulocytes Absolute 0.02 #; Lymphocytes # 0.7 10*3/uL (1.4-4.0); Lymphocytes % 8.8 % (21.2-54.2); Mean Corpuscular HGB Conc 31.4 GM/DL (32-36); Mean Corpuscular Volume 93.5 FL (87-102); Mean Platelet Volume 11.4 FL (9.6-12.0); Monocytes % 8.5 % (1.7-12.7); Neutrophils % 78.1 % (38.7-73.9); Platelet Count 284 T/CUMM (130-400); Red Blood Count 3.85 MC/CUMM (3.8-5.5); Red Cell Distribution Width 16.1 % (9.3-17.3); White Blood Count 8.3 T/CUMM (4-12)
[2018-11-08] MEDS: LEVOTHYROXINE 50 MCG TABLET PO SCH (06:25)
[2018-11-08 06:45] LABS: Calcium 9.3 MG/DL (8.5-10.1)
[2018-11-08] MEDS: POTASSIUM CHLORIDE 20 MEQ/15 ML UDCUP PO SCH ×2 (08:47→20:55)
[2018-11-08] MEDS: LACTULOSE 20 GM/30 ML UDCUP PO SCH (08:49)
[2018-11-08] MEDS: LISINOPRIL 20 MG TABLET PO SCH ×2 (08:49→20:55)
[2018-11-08] MEDS: ASPIRIN EC 81 MG TABLET PO SCH (08:51)
[2018-11-08] MEDS: levETIRAcetam 500 MG TABLET PO SCH ×2 (08:51→20:56)
[2018-11-08] MEDS: MULTIVITAMIN (CENTRUM) TABLET PO SCH (08:51)
[2018-11-08] MEDS: APIXABAN 2.5 MG TABLET PO SCH ×2 (08:51→20:56)
[2018-11-08] MEDS: CARVEDILOL 3.125 MG TABLET PO SCH ×2 (08:52→20:55)
[2018-11-08] MEDS: FERROUS SULFATE 325 MG TABLET PO SCH (08:52)
[2018-11-08] MEDS: AMIODARONE 200 MG TABLET PO SCH ×2 (08:52→20:56)
[2018-11-08] MEDS: PANTOPRAZOLE 40 MG TABLET PO SCH (08:52)
[2018-11-08] MEDS: DOCUSATE SODIUM 100 MG CAPSULE PO SCH ×3 (08:53→21:06)
[2018-11-08] MEDS ORDERED: FUROSEMIDE 40 MG TABLET PO SCH (09:00)
[2018-11-08] MEDS: PHENobarbital 30 MG TABLET PO SCH ×2 (14:04→20:56)
[2018-11-08 14:59] LABS: Hepatitis B Core IgM Quant < 0.05 Index; Hepatitis B Surface Ag Quant 0.26 Index; Hepatitis B Surface Ag Result Negative (Negative); Hepatitis C Virus Ab Quant 0.16 Index; Hepatitis C Virus Ab Result Negative (Negative)
[2018-11-08] MEDS: CALCIUM (CARBONATE)/VITAMIN D 600 MG-400 UNIT TABLET PO SCH (16:18)
[2018-11-08] MEDS: SIMVASTATIN 20 MG TABLET PO SCH (20:56)
[2018-11-09 05:43] LABS: Basophils # 0.1 10*3/uL (0.0-0.2); Basophils % 0.8 % (0.0-0.8); Eosinophils # 0.4 10*3/uL (0.0-0.87); Eosinophils % 5.3 % (0.00-10.9); Hematocrit 31.4 VOL% (42.0-52.0); Immature Granulocytes % 0.3 %; Immature Granulocytes Absolute 0.02 #; Lymphocytes # 1.1 10*3/uL (1.4-4.0); Lymphocytes % 13.8 % (21.2-54.2); Mean Corpuscular HGB Conc 31.8 GM/DL (32-36); Mean Corpuscular Volume 92.4 FL (87-102); Mean Platelet Volume 11.2 FL (9.6-12.0); Monocytes % 13.8 % (1.7-12.7); Platelet Count 248 T/CUMM (130-400); White Blood Count 7.6 T/CUMM (4-12)
[2018-11-09] MEDS: LEVOTHYROXINE 50 MCG TABLET PO SCH (06:01)
[2018-11-09 06:15] LABS: Calcium 9.1 MG/DL (8.5-10.1); Osmolality,Calculated 276.1 MOS/KG (273-304)
[2018-11-09 06:29] LABS: % Iron Saturation 16.3 % (18-50); Ferritin 119.5 ng/ml (26-388)
[2018-11-09 08:16] VITALS: BP 126/60
[2018-11-09] MEDS: levETIRAcetam 500 MG TABLET PO SCH (09:32)
[2018-11-09] MEDS: ASPIRIN EC 81 MG TABLET PO SCH (09:33)
[2018-11-09] MEDS: APIXABAN 2.5 MG TABLET PO SCH (09:33)
[2018-11-09] MEDS: CARVEDILOL 3.125 MG TABLET PO SCH (09:33)
[2018-11-09] MEDS: MULTIVITAMIN (CENTRUM) TABLET PO SCH (09:33)
[2018-11-09] MEDS: FERROUS SULFATE 325 MG TABLET PO SCH (09:33)
[2018-11-09] MEDS: LISINOPRIL 20 MG TABLET PO SCH (09:33)
[2018-11-09] MEDS: AMIODARONE 200 MG TABLET PO SCH (09:33)
[2018-11-09] MEDS: POTASSIUM CHLORIDE 20 MEQ/15 ML UDCUP PO SCH (09:33)
[2018-11-09] MEDS: PANTOPRAZOLE 40 MG TABLET PO SCH (09:33)
[2018-11-09] MEDS: DOCUSATE SODIUM 100 MG CAPSULE PO SCH (09:34)
[2018-11-10] MEDS ORDERED: FUROSEMIDE 40 MG TABLET PO SCH (09:00)
== END 2018-11-09 12:00 | disposition home health service (06) | DRG 291 ==
LOC: EDUNIT# → EDBD → N.ED 12:26 → N.EDINP 15:16 → N.TELEN 11-05 02:02
PROVIDERS: ADMIT Family Medicine; ATTEND Family Medicine

== ENCOUNTER 2019-05-10 09:25 | Observation (INO) ==
[2019-05-10] MEDS ORDERED: ASPIRIN 325 MG TABLET PO STA (09:38)
[2019-05-10 10:42] LABS: Basophils # 0.1 10*3/uL (0.0-0.2); Basophils % 1.1 % (0.0-0.8); Eosinophils # 0.2 10*3/uL (0.0-0.87); Eosinophils % 3.4 % (0.00-10.9); Hematocrit 32.9 VOL% (42.0-52.0); Hemoglobin 10.5 GM/DL (14.0-18.0); Lymphocytes # 0.9 10*3/uL (1.4-4.0); Lymphocytes % 19.4 % (21.2-54.2); Mean Corpuscular HGB Conc 31.9 GM/DL (32-36); Mean Corpuscular Volume 100.9 FL (87-102); Mean Platelet Volume 10.9 FL (9.6-12.0); Monocytes % 11.3 % (1.7-12.7); Neutrophils % 64.8 % (38.7-73.9); Platelet Count 136 T/CUMM (130-400); Red Blood Count 3.26 MC/CUMM (3.8-5.5); Red Cell Distribution Width 13.2 % (9.3-17.3); White Blood Count 4.4 T/CUMM (4-12)
[2019-05-10 11:20] LABS: Alanine Aminotransferase 29 U/L (16-61); Albumin 3.3 G/DL (3.4-5.0); Alkaline Phosphatase 154 U/L (45-117); Aspartate Amino Transferase 23 U/L (0-37); Bilirubin,Total < 0.39 MG/DL (0.2-1.0); Blood Urea Nitrogen 14 MG/DL (7-18); Calcium 8.3 MG/DL (8.5-10.1); Estimated Glom Filtration Rate 69 ML/MIN; Glucose 94 MG/DL (74-106); Osmolality,Calculated 279.4 MOS/KG (273-304); Total Protein 7.1 G/DL (6.4-8.3)
[2019-05-10] MEDS ORDERED: ACETAMINOPHEN 325 MG TABLET PO PRN (14:26)
[2019-05-10] MEDS ORDERED: ONDANSETRON 4 MG/2 ML VIAL IV PRN (14:26)
[2019-05-10] MEDS ORDERED: POTASSIUM CHLORIDE 20 MEQ TABLET PO PRN ×2 (14:26→15:30)
[2019-05-10] MEDS ORDERED: MAGNESIUM SULF RIDER 2 GM in PREMIX 1 EACH IV PRN (14:26)
[2019-05-10] MEDS ORDERED: DEXTROSE 50% 25 GM/50 ML VIAL IV PRN (14:26)
[2019-05-10] MEDS ORDERED: MAGNESIUM SULF RIDER 4 GM in PREMIX 1 EACH IV PRN (14:26)
[2019-05-10] MEDS ORDERED: NITROGLYCERIN SL 0.4 MG TABLET SL PRN (14:33)
[2019-05-10] MEDS ORDERED: FLUTICASONE 50 MCG NASAL SPRAY 16 GM BOTTLE BOTH NARES PRN (15:30)
[2019-05-10] MEDS ORDERED: FUROSEMIDE 40 MG TABLET PO PRN (15:30)
[2019-05-10] MEDS: SODIUM CHLORIDE 0.45% 1,000 ML IV SCH (15:57)
[2019-05-10] MEDS: ENOXAPARIN 40 MG/0.4 ML SYRINGE SUBCUT SCH (15:58)
[2019-05-10] MEDS: levETIRAcetam 500 MG TABLET PO SCH (17:01)
[2019-05-10] MEDS: LISINOPRIL 20 MG TABLET PO SCH (17:01)
[2019-05-10] MEDS: CALCIUM (CARBONATE)/VITAMIN D 600 MG-400 UNIT TABLET PO SCH (17:02)
[2019-05-10] MEDS: carvediloL 3.125 MG TABLET PO SCH (17:02)
[2019-05-10] MEDS: NITROGLYCERIN 2% OINT 1 INCH/GM PACK TOP SCH (20:42)
[2019-05-10] MEDS: PHENobarbital 30 MG TABLET PO SCH (20:44)
[2019-05-10] MEDS: SIMVASTATIN 40 MG TABLET PO SCH (20:44)
[2019-05-11 05:19] LABS: Basophils # 0.1 10*3/uL (0.0-0.2); Basophils % 1.1 % (0.0-0.8); Eosinophils # 0.2 10*3/uL (0.0-0.87); Eosinophils % 5.1 % (0.00-10.9); Hematocrit 28.5 VOL% (42.0-52.0); Hemoglobin 9.3 GM/DL (14.0-18.0); Immature Granulocytes % 0.4 %; Immature Granulocytes Absolute 0.02 #; Lymphocytes # 1.1 10*3/uL (1.4-4.0); Lymphocytes % 24.2 % (21.2-54.2); Mean Corpuscular HGB Conc 32.6 GM/DL (32-36); Mean Corpuscular Volume 98.3 FL (87-102); Mean Platelet Volume 11.4 FL (9.6-12.0); Neutrophils % 56.2 % (38.7-73.9); Platelet Count 125 T/CUMM (130-400); Red Cell Distribution Width 13.1 % (9.3-17.3); White Blood Count 4.7 T/CUMM (4-12)
[2019-05-11] MEDS: SODIUM CHLORIDE 0.45% 1,000 ML IV SCH (05:31)
[2019-05-11 05:36] LABS: Calcium 8.4 MG/DL (8.5-10.1); Osmolality,Calculated 271.8 MOS/KG (273-304)
[2019-05-11 05:44] LABS: Risk Ratio 2.78; VLDL CHOLESTEROL 13.2 MG/DL
[2019-05-11] MEDS: LEVOTHYROXINE 75 MCG TABLET PO SCH (05:53)
[2019-05-11] MEDS: LISINOPRIL 20 MG TABLET PO SCH ×2 (09:47→16:48)
[2019-05-11] MEDS: AMIODARONE 200 MG TABLET PO SCH (09:48)
[2019-05-11] MEDS: carvediloL 3.125 MG TABLET PO SCH ×2 (09:48→16:49)
[2019-05-11] MEDS: ASPIRIN EC 81 MG TABLET PO SCH (09:48)
[2019-05-11] MEDS: NITROGLYCERIN 2% OINT 1 INCH/GM PACK TOP SCH ×2 (09:48→20:11)
[2019-05-11] MEDS: levETIRAcetam 500 MG TABLET PO SCH ×2 (09:48→16:49)
[2019-05-11] MEDS: MULTIVITAMIN (CENTRUM) TABLET PO SCH (09:48)
[2019-05-11] MEDS ORDERED: PHENobarbital 30 MG TABLET PO SCH (12:00)
[2019-05-11] MEDS: ENOXAPARIN 40 MG/0.4 ML SYRINGE SUBCUT SCH (14:44)
[2019-05-11] MEDS: CALCIUM (CARBONATE)/VITAMIN D 600 MG-400 UNIT TABLET PO SCH (16:49)
[2019-05-11] MEDS: PHENobarbital 30 MG TABLET PO SCH (20:11)
[2019-05-11] MEDS: SIMVASTATIN 40 MG TABLET PO SCH (20:11)
[2019-05-12] MEDS: LEVOTHYROXINE 75 MCG TABLET PO SCH (06:05)
[2019-05-12 08:16] VITALS: BP 150/73
[2019-05-12] MEDS: AMIODARONE 200 MG TABLET PO SCH (08:37)
[2019-05-12] MEDS: LISINOPRIL 20 MG TABLET PO SCH (08:37)
[2019-05-12] MEDS: levETIRAcetam 500 MG TABLET PO SCH (08:37)
[2019-05-12] MEDS: ASPIRIN EC 81 MG TABLET PO SCH (08:38)
[2019-05-12] MEDS: carvediloL 3.125 MG TABLET PO SCH (08:38)
[2019-05-12] MEDS: NITROGLYCERIN 2% OINT 1 INCH/GM PACK TOP SCH (08:40)
[2019-05-12] MEDS: MULTIVITAMIN (CENTRUM) TABLET PO SCH (08:44)
[2019-05-14] MEDS ORDERED: NON-FORMULARY MEDICATION (Alendronate [Fosamax] 70 MG) PO SCH (09:00)
== END 2019-05-12 10:25 | disposition home or self-care (01) ==
LOC: N.EDINP 09:25 → N.ED 09:25 → N.TELEN 14:59
PROVIDERS: ADMIT Family Medicine; ATTEND Family Medicine

== ENCOUNTER 2020-08-14 18:50 | Inpatient (IN) ==
[2020-08-14 19:50] LABS: Basophils # 0.1 10*3/uL (0.0-0.2); Basophils % 1.2 % (0.0-0.8); Eosinophils # 0.2 10*3/uL (0.0-0.87); Eosinophils % 5.5 % (0.00-10.9); Hematocrit 29.7 VOL% (42.0-52.0); Hemoglobin 9.6 GM/DL (14.0-18.0); Immature Granulocytes % 0.2 %; Immature Granulocytes Absolute 0.01 #; Lymphocytes # 1.1 10*3/uL (1.4-4.0); Lymphocytes % 25.5 % (21.2-54.2); Mean Corpuscular HGB Conc 32.3 GM/DL (32-36); Mean Corpuscular Volume 95.8 FL (87-102); Mean Platelet Volume 11.7 FL (9.6-12.0); Monocytes % 9.8 % (1.7-12.7); Neutrophils % 57.8 % (38.7-73.9); Platelet Count 111 T/CUMM (130-400); Red Cell Distribution Width 14.7 % (9.3-17.3); White Blood Count 4.2 T/CUMM (4-12)
[2020-08-14 20:00] LABS: INR 1.1; PT Patient Result 11.9 SECS (9.8-11.9)
[2020-08-14 20:08] LABS: Alanine Aminotransferase 23 U/L (16-61); Albumin 3.7 G/DL (3.4-5.0); Alkaline Phosphatase 199 U/L (45-117); Aspartate Amino Transferase 25 U/L (0-37); Bilirubin,Total < 0.39 MG/DL (0.2-1.0); Blood Urea Nitrogen 22 MG/DL (7-18); Calcium 8.2 MG/DL (8.5-10.1); Carbon Dioxide 25 MMOL/L (21-32); Estimated Glom Filtration Rate 62 ML/MIN; Glucose 87 MG/DL (74-106); Osmolality,Calculated 259.9 MOS/KG (273-304); Potassium 3.9 MMOL/L (3.5-5.1); Sodium 129 MMOL/L (136-145)
[2020-08-14 20:11] LABS: Troponin I 0.052 NG/ML (0.00-0.045)
[2020-08-14 20:19] LABS: Bilirubin,Urine Negative (Negative); Blood, Urine Small mg/dL (Negative); Glucose,Urine (UA) Negative (Negative); Ketones,Urine Negative (Negative); Mucus,Urine Occasional /LPF (Occasional); Nitrite,Urine Negative (Negative); Protein,Urine Negative; RBC,Urine 1 /HPF (0-4); Squamous Epithelial Cell,Urine Occasional /HPF (0-10); Urine Appearance CLEAR (Clear); Urine Color Yellow (Yellow); Urine Specific Gravity 1.013 (1.001-1.035); Urine Urobilinogen < 2.0 EU/DL (0.2-1.0); WBC,Urine <1 /HPF (0-6)
[2020-08-14] MEDS ORDERED: FUROSEMIDE 40 MG/4 ML VIAL IV STA (20:43)
[2020-08-14] MEDS ORDERED: PANTOPRAZOLE 40 MG VIAL IV STA (20:43)
[2020-08-14] MEDS ORDERED: ONDANSETRON 4 MG/2 ML VIAL IV PRN (20:48)
[2020-08-14] MEDS ORDERED: ACETAMINOPHEN 325 MG TABLET PO PRN (20:48)
[2020-08-15] MEDS: DOCUSATE SODIUM 100 MG CAPSULE PO SCH ×3 (00:37→21:23)
[2020-08-15 05:22] LABS: Basophils % 0.9 % (0.0-0.8); Eosinophils # 0.2 10*3/uL (0.0-0.87); Eosinophils % 5.6 % (0.00-10.9); Hematocrit 24.8 VOL% (42.0-52.0); Hemoglobin 8.2 GM/DL (14.0-18.0); Lymphocytes # 0.9 10*3/uL (1.4-4.0); Lymphocytes % 27.6 % (21.2-54.2); Mean Corpuscular HGB Conc 33.1 GM/DL (32-36); Mean Corpuscular Volume 93.9 FL (87-102); Mean Platelet Volume 11.4 FL (9.6-12.0); Monocytes % 16.1 % (1.7-12.7); Neutrophils % 49.8 % (38.7-73.9); Red Blood Count 2.64 MC/CUMM (3.8-5.5); Red Cell Distribution Width 14.7 % (9.3-17.3); White Blood Count 3.4 T/CUMM (4-12)
[2020-08-15 05:25] LABS: Platelet Count 83 T/CUMM (130-400)
[2020-08-15 05:41] LABS: Albumin 3.2 G/DL (3.4-5.0); Bilirubin,Total 0.5 MG/DL (0.2-1.0); Osmolality,Calculated 269.4 MOS/KG (273-304); Potassium 3.9 MMOL/L (3.5-5.1)
[2020-08-15 05:43] LABS: Eosinophils 5 % (0-10); Hypochromasia 1+; Lymphocytes 31 % (20-55); Microcytosis 1+; Platelet Estimate Decreased; Segmented Neutrophils 54 % (50-85); Total Cells Counted 100
[2020-08-15 08:41] LABS: Troponin I 0.046 NG/ML (0.00-0.045)
[2020-08-15] MEDS ORDERED: PANTOPRAZOLE 40 MG TABLET PO SCH (09:00)
[2020-08-15] MEDS: PANTOPRAZOLE 40 MG VIAL IV SCH (09:40)
[2020-08-15 14:18] LABS: Troponin I 0.049 NG/ML (0.00-0.045)
[2020-08-15] MEDS ORDERED: FLUTICASONE 50 MCG NASAL SPRAY 16 GM BOTTLE BOTH NARES PRN (16:48)
[2020-08-15] MEDS ORDERED: NITROGLYCERIN SL 0.4 MG TABLET SL PRN (16:48)
[2020-08-15] MEDS ORDERED: POTASSIUM CHLORIDE 20 MEQ TABLET PO PRN (16:48)
[2020-08-15] MEDS ORDERED: FUROSEMIDE 40 MG TABLET PO PRN (16:48)
[2020-08-15] MEDS: CALCIUM (CARBONATE)/VITAMIN D 600 MG-400 UNIT TABLET PO SCH (17:07)
[2020-08-15] MEDS: levETIRAcetam 500 MG TABLET PO SCH (17:07)
[2020-08-15] MEDS: carvediloL 3.125 MG TABLET PO SCH (17:08)
[2020-08-15] MEDS: lisinopriL 20 MG TABLET PO SCH (17:08)
[2020-08-15] MEDS: PHENobarbital 30 MG TABLET PO SCH (21:23)
[2020-08-15] MEDS: SIMVASTATIN 20 MG TABLET PO SCH (21:24)
[2020-08-16 04:53] LABS: Basophils # 0.1 10*3/uL (0.0-0.2); Basophils % 1.4 % (0.0-0.8); Eosinophils # 0.1 10*3/uL (0.0-0.87); Eosinophils % 3.4 % (0.00-10.9); Hematocrit 24.6 VOL% (42.0-52.0); Hemoglobin 8.2 GM/DL (14.0-18.0); Immature Granulocytes % 0.3 %; Immature Granulocytes Absolute 0.01 #; Lymphocytes % 28.2 % (21.2-54.2); Mean Corpuscular HGB Conc 33.3 GM/DL (32-36); Mean Corpuscular Volume 93.5 FL (87-102); Monocytes % 13.4 % (1.7-12.7); Neutrophils % 53.3 % (38.7-73.9); Platelet Count 102 T/CUMM (130-400); Red Blood Count 2.63 MC/CUMM (3.8-5.5); Red Cell Distribution Width 14.7 % (9.3-17.3); White Blood Count 3.5 T/CUMM (4-12)
[2020-08-16 05:10] LABS: Calcium 8.4 MG/DL (8.5-10.1); Osmolality,Calculated 268.2 MOS/KG (273-304); Potassium 3.9 MMOL/L (3.5-5.1)
[2020-08-16 05:24] LABS: Hypochromasia 1+; Microcytosis 1+
[2020-08-16] MEDS: LEVOTHYROXINE 75 MCG TABLET PO SCH (05:52)
[2020-08-16 08:32] LABS: % Iron Saturation 10.7 % (18-50); Ferritin 56.2 ng/ml (26-388)
[2020-08-16 08:48] LABS: Folate 23.1 NG/ML (5.38-24.0)
[2020-08-16] MEDS ORDERED: AMIODARONE 200 MG TABLET PO SCH (09:00)
[2020-08-16] MEDS: lisinopriL 20 MG TABLET PO SCH ×2 (09:30→16:23)
[2020-08-16] MEDS: levETIRAcetam 500 MG TABLET PO SCH ×2 (09:30→16:23)
[2020-08-16] MEDS: AMIODARONE 200 MG TABLET PO SCH ×2 (09:31→20:21)
[2020-08-16] MEDS: DOCUSATE SODIUM 100 MG CAPSULE PO SCH ×3 (09:31→20:23)
[2020-08-16] MEDS: carvediloL 3.125 MG TABLET PO SCH ×2 (09:31→16:23)
[2020-08-16] MEDS: PANTOPRAZOLE 40 MG VIAL IV SCH (09:33)
[2020-08-16] MEDS: ASPIRIN EC 81 MG TABLET PO SCH (09:35)
[2020-08-16] MEDS: PHENobarbital 30 MG TABLET PO SCH ×2 (11:30→20:21)
[2020-08-16] MEDS: CALCIUM (CARBONATE)/VITAMIN D 600 MG-400 UNIT TABLET PO SCH (16:24)
[2020-08-16] MEDS: SIMVASTATIN 20 MG TABLET PO SCH (20:21)
[2020-08-17 05:54] LABS: Basophils % 1.2 % (0.0-0.8); Eosinophils # 0.2 10*3/uL (0.0-0.87); Eosinophils % 5.5 % (0.00-10.9); Hemoglobin 8.3 GM/DL (14.0-18.0); Immature Granulocytes % 0.3 %; Immature Granulocytes Absolute 0.01 #; Lymphocytes # 0.7 10*3/uL (1.4-4.0); Lymphocytes % 20.9 % (21.2-54.2); Mean Corpuscular HGB Conc 33.2 GM/DL (32-36); Mean Corpuscular Volume 93.3 FL (87-102); Mean Platelet Volume 11.8 FL (9.6-12.0); Monocytes % 13.6 % (1.7-12.7); Neutrophils % 58.5 % (38.7-73.9); Platelet Count 86 T/CUMM (130-400); Red Blood Count 2.68 MC/CUMM (3.8-5.5); Red Cell Distribution Width 14.7 % (9.3-17.3); White Blood Count 3.5 T/CUMM (4-12)
[2020-08-17] MEDS: LEVOTHYROXINE 75 MCG TABLET PO SCH (06:03)
[2020-08-17 06:14] LABS: Hypochromasia 1+
[2020-08-17 06:15] LABS: Microcytosis 1+; Ovalocytes Slight; Platelet Estimate Decreased
[2020-08-17] MEDS: AMIODARONE 200 MG TABLET PO SCH ×2 (08:30→21:07)
[2020-08-17] MEDS: levETIRAcetam 500 MG TABLET PO SCH ×2 (08:30→16:46)
[2020-08-17] MEDS: DOCUSATE SODIUM 100 MG CAPSULE PO SCH ×3 (08:30→21:09)
[2020-08-17] MEDS: lisinopriL 20 MG TABLET PO SCH ×2 (08:30→16:46)
[2020-08-17] MEDS: carvediloL 3.125 MG TABLET PO SCH ×2 (08:30→16:38)
[2020-08-17] MEDS: ASPIRIN EC 81 MG TABLET PO SCH (08:30)
[2020-08-17] MEDS: PANTOPRAZOLE 40 MG VIAL IV SCH (08:33)
[2020-08-17] MEDS ORDERED: SODIUM CHLORIDE 0.9% 1,000 ML IV SCH (09:30)
[2020-08-17] MEDS: PHENobarbital 30 MG TABLET PO SCH ×2 (12:37→21:07)
[2020-08-17] MEDS: CALCIUM (CARBONATE)/VITAMIN D 600 MG-400 UNIT TABLET PO SCH (16:45)
[2020-08-17] MEDS: SIMVASTATIN 20 MG TABLET PO SCH (21:07)
[2020-08-18] MEDS: LEVOTHYROXINE 75 MCG TABLET PO SCH ×2 (05:56→06:00)
[2020-08-18] MEDS: PANTOPRAZOLE 40 MG VIAL IV SCH (09:47)
[2020-08-18] MEDS ORDERED: MIDAZOLAM 10 MG/2 ML VIAL ONE (12:50)
[2020-08-18] MEDS ORDERED: MEPERIDINE 25 MG/1 ML VIAL ONE (12:51)
[2020-08-18] MEDS: carvediloL 3.125 MG TABLET PO SCH ×2 (16:36→16:40)
[2020-08-18] MEDS: levETIRAcetam 500 MG TABLET PO SCH ×2 (16:37→16:40)
[2020-08-18] MEDS: lisinopriL 20 MG TABLET PO SCH ×2 (16:37→16:40)
[2020-08-18] MEDS: DOCUSATE SODIUM 100 MG CAPSULE PO SCH ×2 (16:37→21:08)
[2020-08-18] MEDS: ASPIRIN EC 81 MG TABLET PO SCH (16:40)
[2020-08-18] MEDS: AMIODARONE 200 MG TABLET PO SCH ×2 (16:41→21:07)
[2020-08-18] MEDS ORDERED: ALENDRONATE 70 MG PO SCH (16:48)
[2020-08-18] MEDS: CALCIUM (CARBONATE)/VITAMIN D 600 MG-400 UNIT TABLET PO SCH (16:56)
[2020-08-18] MEDS: PHENobarbital 30 MG TABLET PO SCH ×2 (16:56→23:07)
[2020-08-18] MEDS: SIMVASTATIN 20 MG TABLET PO SCH (21:07)
[2020-08-19] MEDS: LEVOTHYROXINE 75 MCG TABLET PO SCH (06:40)
[2020-08-19] MEDS: levETIRAcetam 500 MG TABLET PO SCH (09:28)
[2020-08-19] MEDS: lisinopriL 20 MG TABLET PO SCH (09:28)
[2020-08-19] MEDS: AMIODARONE 200 MG TABLET PO SCH (09:29)
[2020-08-19] MEDS: carvediloL 3.125 MG TABLET PO SCH (09:29)
[2020-08-19] MEDS: ASPIRIN EC 81 MG TABLET PO SCH (09:29)
[2020-08-19] MEDS: PANTOPRAZOLE 40 MG VIAL IV SCH (09:29)
[2020-08-19] MEDS: DOCUSATE SODIUM 100 MG CAPSULE PO SCH (09:30)
[2020-08-19 17:42] VITALS: BP 164/77
== END 2020-08-19 13:10 | disposition home or self-care (01) | DRG 309 ==
LOC: N.ED 18:50 → N.EDINP 18:50 → N.TELEN 08-15 00:33
PROVIDERS: ADMIT Family Medicine; ATTEND Family Medicine

== ENCOUNTER 2020-09-16 08:22 | Inpatient (IN) ==
[2020-09-16] MEDS ORDERED: ASPIRIN 325 MG TABLET PO STA (08:25)
[2020-09-16 09:53] LABS: Basophils % 1.1 % (0.0-0.8); Eosinophils # 0.2 10*3/uL (0.0-0.87); Eosinophils % 4.5 % (0.00-10.9); Hematocrit 26.3 VOL% (42.0-52.0); Hemoglobin 8.6 GM/DL (14.0-18.0); Immature Granulocytes % 0.3 %; Immature Granulocytes Absolute 0.01 #; Lymphocytes # 0.6 10*3/uL (1.4-4.0); Lymphocytes % 17.6 % (21.2-54.2); Mean Corpuscular HGB Conc 32.7 GM/DL (32-36); Mean Corpuscular Volume 93.9 FL (87-102); Monocytes % 15.1 % (1.7-12.7); Neutrophils % 61.4 % (38.7-73.9); Platelet Count 109 T/CUMM (130-400); Red Cell Distribution Width 15.1 % (9.3-17.3); White Blood Count 3.6 T/CUMM (4-12)
[2020-09-16 10:10] LABS: Alanine Aminotransferase 21 U/L (16-61); Albumin 3.5 G/DL (3.4-5.0); Alkaline Phosphatase 225 U/L (45-117); Aspartate Amino Transferase 24 U/L (0-37); Bilirubin,Total < 0.39 MG/DL (0.2-1.0); Blood Urea Nitrogen 25 MG/DL (7-18); Calcium 8.4 MG/DL (8.5-10.1); Carbon Dioxide 25 MMOL/L (21-32); Estimated Glom Filtration Rate 52 ML/MIN; Glucose 80 MG/DL (74-106); Hypochromasia 1+; Microcytosis 1+; Osmolality,Calculated 253.5 MOS/KG (273-304); Platelet Estimate Decreased; Potassium 4.5 MMOL/L (3.5-5.1); Sodium 125 MMOL/L (136-145); Total Protein 7.7 G/DL (6.4-8.2)
[2020-09-16] MEDS ORDERED: ACETAMINOPHEN 325 MG TABLET PO PRN (10:44)
[2020-09-16] MEDS ORDERED: ONDANSETRON 4 MG/2 ML VIAL IV PRN (10:44)
[2020-09-16] MEDS: SODIUM CHLORIDE 0.9% 1,000 ML IV SCH ×3 (12:45→22:54)
[2020-09-16] MEDS ORDERED: NITROGLYCERIN SL 0.4 MG TABLET SL PRN (13:25)
[2020-09-16] MEDS ORDERED: hydrALAZINE 20 MG/1 ML VIAL IV PRN (13:28)
[2020-09-16 14:41] LABS: Troponin I 0.047 NG/ML (0.00-0.045)
[2020-09-16] MEDS: lisinopriL 20 MG TABLET PO SCH (15:37)
[2020-09-16] MEDS: AMIODARONE 200 MG TABLET PO SCH (16:02)
[2020-09-16 16:49] LABS: Troponin I 0.054 NG/ML (0.00-0.045)
[2020-09-16] MEDS ORDERED: FLUTICASONE 50 MCG NASAL SPRAY 16 GM BOTTLE BOTH NARES PRN (17:06)
[2020-09-16] MEDS ORDERED: POTASSIUM CHLORIDE 20 MEQ TABLET PO PRN (17:06)
[2020-09-16] MEDS ORDERED: FUROSEMIDE 40 MG TABLET PO PRN (17:06)
[2020-09-16 19:48] LABS: Troponin I 0.051 NG/ML (0.00-0.045)
[2020-09-16] MEDS: PHENobarbital 30 MG TABLET PO SCH (21:49)
[2020-09-16] MEDS: SIMVASTATIN 20 MG TABLET PO SCH (21:49)
[2020-09-16] MEDS: DOCUSATE SODIUM 100 MG CAPSULE PO SCH (21:51)
[2020-09-17] MEDS: SODIUM CHLORIDE 0.9% 1,000 ML IV SCH ×3 (03:00→20:58)
[2020-09-17 05:29] LABS: Basophils % 1.1 % (0.0-0.8); Eosinophils # 0.2 10*3/uL (0.0-0.87); Eosinophils % 4.3 % (0.00-10.9); Hematocrit 23.3 VOL% (42.0-52.0); Hemoglobin 7.8 GM/DL (14.0-18.0); Immature Granulocytes % 0.3 %; Immature Granulocytes Absolute 0.01 #; Lymphocytes # 0.6 10*3/uL (1.4-4.0); Lymphocytes % 16.3 % (21.2-54.2); Mean Corpuscular HGB Conc 33.5 GM/DL (32-36); Mean Corpuscular Volume 92.8 FL (87-102); Mean Platelet Volume 12.2 FL (9.6-12.0); Monocytes % 13.3 % (1.7-12.7); Neutrophils % 64.7 % (38.7-73.9); Platelet Count 96 T/CUMM (130-400); Red Blood Count 2.51 MC/CUMM (3.8-5.5); Red Cell Distribution Width 15.1 % (9.3-17.3); White Blood Count 3.7 T/CUMM (4-12)
[2020-09-17 05:56] LABS: Calcium 8.2 MG/DL (8.5-10.1); Osmolality,Calculated 263.8 MOS/KG (273-304); Potassium 4.7 MMOL/L (3.5-5.1)
[2020-09-17 06:01] LABS: Hypochromasia 2+; Microcytosis 1+; Platelet Estimate Decreased
[2020-09-17] MEDS: LEVOTHYROXINE 75 MCG TABLET PO SCH (06:03)
[2020-09-17 06:12] LABS: % Iron Saturation 11.4 % (18-50); Ferritin 56.5 ng/ml (26-388)
[2020-09-17] MEDS: FERROUS SULFATE ER 140 MG TABLET PO SCH (09:10)
[2020-09-17] MEDS: DOCUSATE SODIUM 100 MG CAPSULE PO SCH ×2 (09:10→20:25)
[2020-09-17] MEDS: lisinopriL 20 MG TABLET PO SCH (09:10)
[2020-09-17] MEDS: MULTIVITAMIN (CENTRUM) TABLET PO SCH (09:10)
[2020-09-17] MEDS: ASPIRIN EC 81 MG TABLET PO SCH (09:10)
[2020-09-17] MEDS: carvediloL 3.125 MG TABLET PO SCH ×2 (09:10→16:52)
[2020-09-17] MEDS: levETIRAcetam 500 MG TABLET PO SCH ×2 (09:10→16:52)
[2020-09-17] MEDS: AMIODARONE 200 MG TABLET PO SCH (09:10)
[2020-09-17] MEDS: PHENobarbital 30 MG TABLET PO SCH ×2 (12:53→21:09)
[2020-09-17] MEDS: CALCIUM (CARBONATE)/VITAMIN D 600 MG-400 UNIT TABLET PO SCH (16:52)
[2020-09-17] MEDS: SIMVASTATIN 20 MG TABLET PO SCH (20:59)
[2020-09-18 05:08] LABS: Basophils # 0.1 10*3/uL (0.0-0.2); Basophils % 1.9 % (0.0-0.8); Eosinophils # 0.2 10*3/uL (0.0-0.87); Eosinophils % 6.5 % (0.00-10.9); Immature Granulocytes % 0.6 %; Immature Granulocytes Absolute 0.02 #; Lymphocytes # 0.9 10*3/uL (1.4-4.0); Lymphocytes % 26.3 % (21.2-54.2); Mean Corpuscular HGB Conc 33.3 GM/DL (32-36); Mean Corpuscular Volume 93.8 FL (87-102); Mean Platelet Volume 11.8 FL (9.6-12.0); Neutrophils % 47.7 % (38.7-73.9); Platelet Count 104 T/CUMM (130-400); Red Blood Count 2.56 MC/CUMM (3.8-5.5); Red Cell Distribution Width 15.3 % (9.3-17.3); White Blood Count 3.2 T/CUMM (4-12)
[2020-09-18 05:23] LABS: Calcium 8.3 MG/DL (8.5-10.1); Osmolality,Calculated 270.2 MOS/KG (273-304); Potassium 4.5 MMOL/L (3.5-5.1)
[2020-09-18] MEDS: LEVOTHYROXINE 75 MCG TABLET PO SCH (05:50)
[2020-09-18] MEDS: SODIUM CHLORIDE 0.9% 1,000 ML IV SCH ×3 (05:51→21:16)
[2020-09-18 07:36] LABS: Atypical Lymphocytes Few; Eosinophils 1 % (0-10); Lymphocytes 21 % (20-55); Segmented Neutrophils 67 % (50-85); Total Cells Counted 100
[2020-09-18 07:37] LABS: Ovalocytes Few; Platelet Estimate Adequate
[2020-09-18] MEDS: FERROUS SULFATE ER 140 MG TABLET PO SCH (09:39)
[2020-09-18] MEDS: AMIODARONE 200 MG TABLET PO SCH (09:39)
[2020-09-18] MEDS: carvediloL 3.125 MG TABLET PO SCH ×2 (09:39→16:50)
[2020-09-18] MEDS: MULTIVITAMIN (CENTRUM) TABLET PO SCH (09:39)
[2020-09-18] MEDS: levETIRAcetam 500 MG TABLET PO SCH ×2 (09:39→16:50)
[2020-09-18] MEDS: ASPIRIN EC 81 MG TABLET PO SCH (09:39)
[2020-09-18] MEDS: lisinopriL 20 MG TABLET PO SCH (10:39)
[2020-09-18] MEDS: DOCUSATE SODIUM 100 MG CAPSULE PO SCH ×2 (10:40→21:17)
[2020-09-18] MEDS: PHENobarbital 30 MG TABLET PO SCH ×2 (11:50→21:17)
[2020-09-18] MEDS ORDERED: SODIUM CHLORIDE 0.9% 1,000 ML IV PRN (16:29)
[2020-09-18] MEDS: CALCIUM (CARBONATE)/VITAMIN D 600 MG-400 UNIT TABLET PO SCH (16:50)
[2020-09-18 16:58] LABS: Hematocrit 26.3 VOL% (42.0-52.0); Hemoglobin 8.3 GM/DL (14.0-18.0)
[2020-09-18] MEDS: SIMVASTATIN 20 MG TABLET PO SCH (21:17)
[2020-09-19] MEDS: LEVOTHYROXINE 75 MCG TABLET PO SCH (06:01)
[2020-09-19 06:08] LABS: Basophils # 0.1 10*3/uL (0.0-0.2); Basophils % 1.6 % (0.0-0.8); Eosinophils # 0.3 10*3/uL (0.0-0.87); Eosinophils % 6.8 % (0.00-10.9); Hematocrit 24.9 VOL% (42.0-52.0); Hemoglobin 8.2 GM/DL (14.0-18.0); Immature Granulocytes % 0.3 %; Immature Granulocytes Absolute 0.01 #; Lymphocytes # 0.8 10*3/uL (1.4-4.0); Lymphocytes % 20.2 % (21.2-54.2); Mean Corpuscular HGB Conc 32.9 GM/DL (32-36); Mean Platelet Volume 11.5 FL (9.6-12.0); Monocytes % 12.6 % (1.7-12.7); Neutrophils % 58.5 % (38.7-73.9); Platelet Count 114 T/CUMM (130-400); Red Blood Count 2.65 MC/CUMM (3.8-5.5); Red Cell Distribution Width 15.6 % (9.3-17.3); White Blood Count 3.8 T/CUMM (4-12)
[2020-09-19 06:29] LABS: Calcium 8.9 MG/DL (8.5-10.1); Osmolality,Calculated 267.4 MOS/KG (273-304); Potassium 4.6 MMOL/L (3.5-5.1)
[2020-09-19] MEDS: AMIODARONE 200 MG TABLET PO SCH (09:38)
[2020-09-19] MEDS: ASPIRIN EC 81 MG TABLET PO SCH (09:38)
[2020-09-19] MEDS: lisinopriL 20 MG TABLET PO SCH (09:38)
[2020-09-19] MEDS: levETIRAcetam 500 MG TABLET PO SCH ×2 (09:38→17:09)
[2020-09-19] MEDS: carvediloL 3.125 MG TABLET PO SCH ×2 (09:38→17:09)
[2020-09-19] MEDS: MULTIVITAMIN (CENTRUM) TABLET PO SCH (09:38)
[2020-09-19] MEDS: DOCUSATE SODIUM 100 MG CAPSULE PO SCH ×2 (10:37→22:02)
[2020-09-19] MEDS: FERROUS SULFATE ER 140 MG TABLET PO SCH (10:37)
[2020-09-19] MEDS: PHENobarbital 30 MG TABLET PO SCH ×2 (14:21→22:01)
[2020-09-19] MEDS: CALCIUM (CARBONATE)/VITAMIN D 600 MG-400 UNIT TABLET PO SCH (17:09)
[2020-09-19] MEDS ORDERED: FUROSEMIDE 20 MG/2 ML VIAL IV ONE (21:00)
[2020-09-19] MEDS: SIMVASTATIN 20 MG TABLET PO SCH (22:02)
[2020-09-20] MEDS: LEVOTHYROXINE 75 MCG TABLET PO SCH (06:15)
[2020-09-20] MEDS: SODIUM CHLORIDE 0.9% 1,000 ML IV SCH (06:15)
[2020-09-20] MEDS: DOCUSATE SODIUM 100 MG CAPSULE PO SCH ×2 (08:56→21:05)
[2020-09-20] MEDS: MULTIVITAMIN (CENTRUM) TABLET PO SCH (08:56)
[2020-09-20] MEDS: lisinopriL 20 MG TABLET PO SCH (08:56)
[2020-09-20] MEDS: AMIODARONE 200 MG TABLET PO SCH (08:56)
[2020-09-20] MEDS: levETIRAcetam 500 MG TABLET PO SCH ×2 (08:56→17:25)
[2020-09-20] MEDS: ASPIRIN EC 81 MG TABLET PO SCH (08:56)
[2020-09-20] MEDS: carvediloL 3.125 MG TABLET PO SCH ×2 (08:56→17:25)
[2020-09-20] MEDS: FERROUS SULFATE ER 140 MG TABLET PO SCH (10:20)
[2020-09-20] MEDS: PHENobarbital 30 MG TABLET PO SCH ×2 (12:04→21:04)
[2020-09-20] MEDS: CALCIUM (CARBONATE)/VITAMIN D 600 MG-400 UNIT TABLET PO SCH (17:25)
[2020-09-20] MEDS: SIMVASTATIN 20 MG TABLET PO SCH (21:04)
[2020-09-21] MEDS: SODIUM CHLORIDE 0.9% 1,000 ML IV SCH (01:13)
[2020-09-21] MEDS: LEVOTHYROXINE 75 MCG TABLET PO SCH (06:09)
[2020-09-21 07:49] VITALS: BP 151/49
[2020-09-21] MEDS: MULTIVITAMIN (CENTRUM) TABLET PO SCH (08:28)
[2020-09-21] MEDS: levETIRAcetam 500 MG TABLET PO SCH (08:28)
[2020-09-21] MEDS: ASPIRIN EC 81 MG TABLET PO SCH (08:29)
[2020-09-21] MEDS: AMIODARONE 200 MG TABLET PO SCH (08:29)
[2020-09-21] MEDS: lisinopriL 20 MG TABLET PO SCH (08:29)
[2020-09-21] MEDS: carvediloL 3.125 MG TABLET PO SCH (08:29)
[2020-09-21] MEDS: DOCUSATE SODIUM 100 MG CAPSULE PO SCH (08:53)
[2020-09-21] MEDS ORDERED: FERROUS SULFATE 325 MG TABLET PO SCH (09:00)
[2020-09-21 09:09] LABS: % Iron Saturation 13.9 % (18-50)
[2020-09-21 09:29] LABS: Folate > 24.00 NG/ML (5.38-24.0); Vitamin B12 399 PG/ML (211-911)
== END 2020-09-21 10:31 | disposition home health service (06) | DRG 880 ==
LOC: N.ED 08:22 → N.EDINP 08:22 → N.5E 11:42
PROVIDERS: ADMIT Family Medicine; ATTEND Family Medicine

== ENCOUNTER 2020-11-11 18:43 | Inpatient (IN) ==
[2020-11-11 19:44] LABS: Basophils # 0.1 10*3/uL (0.0-0.2); Basophils % 1.5 % (0.0-0.8); Eosinophils # 0.2 10*3/uL (0.0-0.87); Eosinophils % 6.7 % (0.00-10.9); Immature Granulocytes % 0.3 %; Immature Granulocytes Absolute 0.01 #; Lymphocytes # 0.9 10*3/uL (1.4-4.0); Lymphocytes % 27.4 % (21.2-54.2); Mean Corpuscular HGB Conc 33.3 GM/DL (32-36); Mean Corpuscular Volume 95.4 FL (87-102); Mean Platelet Volume 11.2 FL (9.6-12.0); Monocytes % 13.4 % (1.7-12.7); Neutrophils % 50.7 % (38.7-73.9); Platelet Count 96 T/CUMM (130-400); Red Blood Count 2.83 MC/CUMM (3.8-5.5); Red Cell Distribution Width 15.9 % (9.3-17.3); White Blood Count 3.4 T/CUMM (4-12)
[2020-11-11 19:53] LABS: INR 1.1; PT Patient Result 12.5 SECS (10.5-12.0); Partial Thromboplastin Time 27.6 SECS (23.9-33.8)
[2020-11-11 19:58] LABS: Albumin 3.4 G/DL (3.4-5.0); Bilirubin,Total 0.4 MG/DL (0.2-1.0); Osmolality,Calculated 267.4 MOS/KG (273-304); Total Protein 6.9 G/DL (6.4-8.2)
[2020-11-11] MEDS ORDERED: ACETAMINOPHEN 325 MG TABLET PO PRN (20:44)
[2020-11-11] MEDS ORDERED: ONDANSETRON 4 MG/2 ML VIAL IV PRN (20:44)
[2020-11-12 04:33] LABS: Basophils # 0.1 10*3/uL (0.0-0.2); Basophils % 1.4 % (0.0-0.8); Eosinophils # 0.3 10*3/uL (0.0-0.87); Eosinophils % 9.2 % (0.00-10.9); Hemoglobin 8.6 GM/DL (14.0-18.0); Lymphocytes % 29.7 % (21.2-54.2); Mean Corpuscular HGB Conc 33.1 GM/DL (32-36); Mean Corpuscular Volume 97.7 FL (87-102); Mean Platelet Volume 11.1 FL (9.6-12.0); Monocytes % 14.4 % (1.7-12.7); Neutrophils % 45.3 % (38.7-73.9); Platelet Count 95 T/CUMM (130-400); Red Blood Count 2.66 MC/CUMM (3.8-5.5); Red Cell Distribution Width 15.9 % (9.3-17.3); White Blood Count 3.5 T/CUMM (4-12)
[2020-11-12 04:53] LABS: Atypical Lymphocytes Few; Eosinophils 10 % (0-10); Lymphocytes 27 % (20-55); Segmented Neutrophils 50 % (50-85); Total Cells Counted 100
[2020-11-12 04:54] LABS: Hypochromasia 1+; Microcytosis 1+; Ovalocytes Slight; Platelet Estimate Decreased
[2020-11-12 05:29] LABS: Albumin 3.2 G/DL (3.4-5.0); Calcium 7.9 MG/DL (8.5-10.1); Total Protein 6.5 G/DL (6.4-8.2)
[2020-11-12 05:51] LABS: Bilirubin,Urine Negative (Negative); Blood, Urine Negative (Negative); Glucose,Urine (UA) Negative (Negative); Ketones,Urine Negative (Negative); Mucus,Urine Occasional /LPF (Occasional); Nitrite,Urine Negative (Negative); Protein,Urine Negative; RBC,Urine <1 /HPF (0-4); Urine Appearance CLEAR (Clear); Urine Color Yellow (Yellow); Urine Specific Gravity 1.009 (1.001-1.035); Urine Urobilinogen < 2.0 EU/DL (0.2-1.0)
[2020-11-12] MEDS ORDERED: POTASSIUM CHLORIDE 20 MEQ TABLET PO PRN (07:57)
[2020-11-12] MEDS ORDERED: NITROGLYCERIN SL 0.4 MG TABLET SL PRN (07:57)
[2020-11-12] MEDS ORDERED: FUROSEMIDE 40 MG TABLET PO PRN (07:57)
[2020-11-12] MEDS ORDERED: FLUTICASONE 50 MCG NASAL SPRAY 16 GM BOTTLE BOTH NARES PRN (07:57)
[2020-11-12] MEDS ORDERED: ASPIRIN CHEW 81 MG TABLET PO SCH (09:00)
[2020-11-12] MEDS: lisinopriL 20 MG TABLET PO SCH (09:54)
[2020-11-12] MEDS: levETIRAcetam 500 MG TABLET PO SCH ×2 (09:55→18:18)
[2020-11-12] MEDS: ASPIRIN EC 81 MG TABLET PO SCH (09:55)
[2020-11-12] MEDS: LEVOTHYROXINE 88 MCG TABLET PO SCH (09:55)
[2020-11-12] MEDS: PANTOPRAZOLE 40 MG TABLET PO SCH (09:55)
[2020-11-12] MEDS: FERROUS SULFATE 325 MG TABLET PO SCH (09:58)
[2020-11-12] MEDS: PHENobarbital 30 MG TABLET PO SCH ×2 (14:25→21:04)
[2020-11-12] MEDS: CALCIUM (CARBONATE)/VITAMIN D 500 MG-200 UNIT TABLET PO SCH (18:19)
[2020-11-12] MEDS: SIMVASTATIN 20 MG TABLET PO SCH (18:19)
[2020-11-12] MEDS ORDERED: PHENobarbital 30 MG TABLET PO SCH (21:00)
[2020-11-13] MEDS: PANTOPRAZOLE 40 MG TABLET PO SCH ×2 (06:50→10:17)
[2020-11-13] MEDS: ASPIRIN EC 81 MG TABLET PO SCH (10:16)
[2020-11-13] MEDS: FERROUS SULFATE 325 MG TABLET PO SCH (10:17)
[2020-11-13] MEDS: levETIRAcetam 500 MG TABLET PO SCH ×2 (10:17→17:18)
[2020-11-13] MEDS: lisinopriL 20 MG TABLET PO SCH (10:17)
[2020-11-13] MEDS: LEVOTHYROXINE 88 MCG TABLET PO SCH (10:19)
[2020-11-13] MEDS: PHENobarbital 30 MG TABLET PO SCH ×2 (12:47→21:17)
[2020-11-13] MEDS: SIMVASTATIN 20 MG TABLET PO SCH (17:18)
[2020-11-13] MEDS: CALCIUM (CARBONATE)/VITAMIN D 500 MG-200 UNIT TABLET PO SCH (17:20)
[2020-11-14] MEDS: PANTOPRAZOLE 40 MG TABLET PO SCH ×2 (06:05→09:57)
[2020-11-14] MEDS: lisinopriL 20 MG TABLET PO SCH (09:57)
[2020-11-14] MEDS: LEVOTHYROXINE 88 MCG TABLET PO SCH (09:57)
[2020-11-14] MEDS: ASPIRIN EC 81 MG TABLET PO SCH (09:57)
[2020-11-14] MEDS: levETIRAcetam 500 MG TABLET PO SCH (09:58)
[2020-11-14] MEDS: FERROUS SULFATE 325 MG TABLET PO SCH (09:58)
[2020-11-14] MEDS: PHENobarbital 30 MG TABLET PO SCH (12:06)
[2020-11-14 13:59] VITALS: BP 145/54
== END 2020-11-14 16:26 | disposition home or self-care (01) | DRG 69 ==
LOC: EDBD → EDUNIT# → N.ED 18:43 → N.EDINP 20:43 → N.TELEN 22:11
PROVIDERS: ADMIT Family Medicine; ATTEND Family Medicine

== ENCOUNTER 2021-09-05 11:55 | Observation (INO) ==
[2021-09-05] MEDS ORDERED: ONDANSETRON 4 MG/2 ML VIAL IV PRN (12:17)
[2021-09-05] MEDS ORDERED: ACETAMINOPHEN 325 MG TABLET PO PRN (12:17)
[2021-09-05] MEDS ORDERED: NITROGLYCERIN SL 0.4 MG TABLET SL PRN (12:22)
[2021-09-05] MEDS ORDERED: POTASSIUM CHLORIDE 20 MEQ TABLET PO PRN (12:22)
[2021-09-05 13:44] LABS: Basophils # 0.1 10*3/uL (0.0-0.2); Basophils % 1.5 % (0.0-0.8); Eosinophils # 0.2 10*3/uL (0.0-0.87); Hematocrit 25.4 VOL% (42.0-52.0); Hemoglobin 8.5 GM/DL (14.0-18.0); Lymphocytes # 0.7 10*3/uL (1.4-4.0); Lymphocytes % 20.4 % (21.2-54.2); Mean Corpuscular HGB Conc 33.5 GM/DL (32-36); Mean Platelet Volume 10.7 FL (9.6-12.0); Monocytes # 0.5 10*3/uL (0.11-0.8); Monocytes % 14.4 % (1.7-12.7); Neutrophils % 57.7 % (38.7-73.9); Platelet Count 90 T/CUMM (130-400); Red Blood Count 2.79 MC/CUMM (3.8-5.5); Red Cell Distribution Width 16.1 % (9.3-17.3); White Blood Count 3.3 T/CUMM (4-12)
[2021-09-05 14:20] LABS: Albumin 3.5 G/DL (3.4-5.0); Bilirubin,Total 0.5 MG/DL (0.20-1.00); Calcium 8.5 MG/DL (8.5-10.1); Osmolality,Calculated 262.8 MOS/KG (273-304); Potassium 4.5 MMOL/L (3.5-5.1)
[2021-09-05] MEDS: PHENobarbital 30 MG TABLET PO SCH ×2 (14:50→21:21)
[2021-09-05] MEDS ORDERED: SODIUM CHLORIDE 0.45% 1,000 ML IV SCH (15:00)
[2021-09-05] MEDS: CALCIUM (CARBONATE)/VITAMIN D 600 MG-400 UNIT TABLET PO SCH (17:45)
[2021-09-05] MEDS: SIMVASTATIN 20 MG TABLET PO SCH (17:46)
[2021-09-05] MEDS: levETIRAcetam 500 MG TABLET PO SCH (17:46)
[2021-09-05 18:56] LABS: RBC,Urine 1 /HPF (0-4)
[2021-09-05 18:57] LABS: Bilirubin,Urine Negative (Negative); Blood, Urine Negative (Negative); Glucose,Urine (UA) Negative (Negative); Ketones,Urine Negative (Negative); Nitrite,Urine Negative (Negative); Protein,Urine 30 mg/dL (Negative); Urine Appearance Clear (Clear); Urine Color Yellow (Yellow); Urine Urobilinogen 0.2 eU/dL (<2.0); Urine pH 5.5 (4.5-8.0)
[2021-09-06 05:44] LABS: Risk Ratio 1.86; VLDL Cholesterol 5.8 MG/DL
[2021-09-06] MEDS: PANTOPRAZOLE 40 MG TABLET PO SCH (06:06)
[2021-09-06 07:55] LABS: Folate 14.12 NG/ML (5.38-24.0)
[2021-09-06 07:57] LABS: % Iron Saturation 9.7 % (18-50); Ferritin 136.9 ng/mL (26-388)
[2021-09-06] MEDS ORDERED: FUROSEMIDE 40 MG/4 ML VIAL IV SCH (09:00)
[2021-09-06] MEDS: FUROSEMIDE 40 MG/4 ML VIAL IV SCH ×2 (10:33→16:45)
[2021-09-06] MEDS: levETIRAcetam 500 MG TABLET PO SCH ×2 (10:33→16:45)
[2021-09-06] MEDS: ASPIRIN EC 81 MG TABLET PO SCH (10:33)
[2021-09-06] MEDS: ENOXAPARIN 40 MG/0.4 ML SYRINGE SUBCUT SCH (10:34)
[2021-09-06] MEDS: PHENobarbital 30 MG TABLET PO SCH ×2 (14:03→20:48)
[2021-09-06] MEDS: CALCIUM (CARBONATE)/VITAMIN D 600 MG-400 UNIT TABLET PO SCH (16:45)
[2021-09-06] MEDS: SIMVASTATIN 20 MG TABLET PO SCH (16:45)
[2021-09-07 05:56] LABS: Calcium 8.5 MG/DL (8.5-10.1); Osmolality,Calculated 271.4 MOS/KG (273-304); Potassium 4.3 MMOL/L (3.5-5.1)
[2021-09-07] MEDS: PANTOPRAZOLE 40 MG TABLET PO SCH (06:34)
[2021-09-07] MEDS: ENOXAPARIN 40 MG/0.4 ML SYRINGE SUBCUT SCH (09:28)
[2021-09-07] MEDS: ASPIRIN EC 81 MG TABLET PO SCH (09:29)
[2021-09-07] MEDS: FUROSEMIDE 40 MG/4 ML VIAL IV SCH ×2 (09:29→16:28)
[2021-09-07] MEDS: levETIRAcetam 500 MG TABLET PO SCH ×2 (09:30→16:27)
[2021-09-07] MEDS: PHENobarbital 30 MG TABLET PO SCH ×2 (11:24→20:33)
[2021-09-07] MEDS: lisinopriL 10 MG TABLET PO SCH (11:24)
[2021-09-07] MEDS: SIMVASTATIN 20 MG TABLET PO SCH (16:27)
[2021-09-07] MEDS: CALCIUM (CARBONATE)/VITAMIN D 600 MG-400 UNIT TABLET PO SCH (16:27)
[2021-09-07 16:43] LABS: Total Protein 24 Hr Ur Result 400 MG/24HR (0-149.1); Total Volume,Urine 4450 ML (400-2000)
[2021-09-08 05:58] LABS: Basophils # 0.1 10*3/uL (0.0-0.2); Basophils % 1.6 % (0.0-0.8); Eosinophils # 0.4 10*3/uL (0.0-0.87); Eosinophils % 13.1 % (0.00-10.9); Hematocrit 22.8 VOL% (42.0-52.0); Hemoglobin 7.7 GM/DL (14.0-18.0); Immature Granulocytes % 0.3 %; Immature Granulocytes Absolute 0.01 #; Lymphocytes # 0.7 10*3/uL (1.4-4.0); Lymphocytes % 21.3 % (21.2-54.2); Mean Corpuscular HGB Conc 33.8 GM/DL (32-36); Mean Corpuscular Volume 90.8 FL (87-102); Mean Platelet Volume 11.4 FL (9.6-12.0); Monocytes # 0.5 10*3/uL (0.11-0.8); Monocytes % 14.4 % (1.7-12.7); Neutrophils % 49.3 % (38.7-73.9); Platelet Count 96 T/CUMM (130-400); Red Blood Count 2.51 MC/CUMM (3.8-5.5); White Blood Count 3.2 T/CUMM (4-12)
[2021-09-08 06:15] LABS: Calcium 8.5 MG/DL (8.5-10.1); Osmolality,Calculated 274.2 MOS/KG (273-304); Potassium 3.9 MMOL/L (3.5-5.1)
[2021-09-08 06:22] LABS: Eosinophils 18 % (0-10); Lymphocytes 15 % (20-55); Total Cells Counted 100
[2021-09-08 06:23] LABS: Hypochromia 1+; Microcytosis 1+; Platelet Estimate Decreased
[2021-09-08] MEDS: PANTOPRAZOLE 40 MG TABLET PO SCH (06:28)
[2021-09-08] MEDS ORDERED: lisinopriL 10 MG TABLET PO SCH (09:00)
[2021-09-08] MEDS ORDERED: FUROSEMIDE 40 MG TABLET PO SCH (09:00)
[2021-09-08] MEDS: lisinopriL 10 MG TABLET PO SCH (09:05)
[2021-09-08] MEDS: ASPIRIN EC 81 MG TABLET PO SCH (09:05)
[2021-09-08] MEDS: levETIRAcetam 500 MG TABLET PO SCH ×2 (09:05→16:22)
[2021-09-08] MEDS: PHENobarbital 30 MG TABLET PO SCH ×2 (11:31→20:09)
[2021-09-08] MEDS: SIMVASTATIN 20 MG TABLET PO SCH (16:22)
[2021-09-08] MEDS: CALCIUM (CARBONATE)/VITAMIN D 600 MG-400 UNIT TABLET PO SCH (16:22)
[2021-09-08] MEDS: FUROSEMIDE 40 MG/4 ML VIAL IV SCH (16:23)
[2021-09-09 06:25] LABS: Basophils # 0.1 10*3/uL (0.0-0.2); Basophils % 1.9 % (0.0-0.8); Eosinophils # 0.4 10*3/uL (0.0-0.87); Eosinophils % 11.9 % (0.00-10.9); Hematocrit 24.3 VOL% (42.0-52.0); Hemoglobin 8.2 GM/DL (14.0-18.0); Immature Granulocytes % 0.3 %; Immature Granulocytes Absolute 0.01 #; Lymphocytes # 0.7 10*3/uL (1.4-4.0); Mean Corpuscular HGB Conc 33.7 GM/DL (32-36); Mean Corpuscular Volume 90.3 FL (87-102); Mean Platelet Volume 11.1 FL (9.6-12.0); Monocytes # 0.4 10*3/uL (0.11-0.8); Monocytes % 11.9 % (1.7-12.7); Platelet Count 105 T/CUMM (130-400); Red Blood Count 2.69 MC/CUMM (3.8-5.5); White Blood Count 3.2 T/CUMM (4-12)
[2021-09-09] MEDS: PANTOPRAZOLE 40 MG TABLET PO SCH (06:34)
[2021-09-09 06:49] LABS: Eosinophils 10 % (0-10); Hypochromia 1+; Lymphocytes 16 % (20-55); Microcytosis 1+; Platelet Estimate Decreased; Total Cells Counted 100
[2021-09-09 07:41] VITALS: BP 102/45
[2021-09-09 07:44] LABS: Albumin 3.3 G/DL (3.4-5.0); Bilirubin,Total 0.4 MG/DL (0.20-1.00); Calcium 8.4 MG/DL (8.5-10.1); Osmolality,Calculated 274.2 MOS/KG (273-304); Potassium 3.9 MMOL/L (3.5-5.1); Total Protein 7.1 G/DL (6.4-8.2)
[2021-09-09] MEDS: levETIRAcetam 500 MG TABLET PO SCH (08:47)
[2021-09-09] MEDS: lisinopriL 10 MG TABLET PO SCH (08:47)
[2021-09-09] MEDS: ASPIRIN EC 81 MG TABLET PO SCH (08:47)
[2021-09-09] MEDS: FUROSEMIDE 40 MG/4 ML VIAL IV SCH (08:48)
== END 2021-09-09 12:00 | disposition home or self-care (01) ==
LOC: INTOOBSV 13:01 → N.5E 13:01
PROVIDERS: ADMIT Family Medicine; ATTEND Family Medicine

== ENCOUNTER 2022-01-30 14:47 | Observation (INO) ==
[2022-01-30 15:14] LABS: Basophils # 0.1 10*3/uL (0.0-0.2); Basophils % 1.2 % (0.0-0.8); Eosinophils # 0.2 10*3/uL (0.0-0.87); Eosinophils % 5.7 % (0.00-10.9); Hematocrit 33.4 VOL% (42.0-52.0); Immature Granulocytes % 0.5 %; Immature Granulocytes Absolute 0.02 #; Lymphocytes # 0.7 10*3/uL (1.4-4.0); Mean Corpuscular HGB Conc 32.9 GM/DL (32-36); Mean Platelet Volume 10.7 FL (9.6-12.0); Monocytes # 0.5 10*3/uL (0.11-0.8); Monocytes % 11.1 % (1.7-12.7); Neutrophils % 65.5 % (38.7-73.9); Platelet Count 92 T/CUMM (130-400); Red Blood Count 3.15 MC/CUMM (3.8-5.5); Red Cell Distribution Width 14.6 % (9.3-17.3); White Blood Count 4.1 T/CUMM (4-12)
[2022-01-30 15:45] LABS: Albumin 3.5 G/DL (3.4-5.0); Bilirubin,Total 0.5 MG/DL (0.20-1.00); Calcium 8.4 MG/DL (8.5-10.1); Osmolality,Calculated 274.1 MOS/KG (273-304); Potassium 5.2 MMOL/L (3.5-5.1); Total Protein 7.6 G/DL (6.4-8.2)
[2022-01-30 16:43] LABS: Platelet Estimate Decreased
[2022-01-30 16:46] LABS: Macrocytosis 1+
[2022-01-30] MEDS ORDERED: ONDANSETRON 4 MG/2 ML VIAL IV PRN (17:10)
[2022-01-30] MEDS ORDERED: fentaNYL 100 MCG/2 ML VIAL IV STA (17:22)
[2022-01-30] MEDS ORDERED: ONDANSETRON 4 MG/2 ML VIAL IV ONE (17:22)
[2022-01-30] MEDS ORDERED: FLUTICASONE 50 MCG NASAL SPRAY 16 GM BOTTLE BOTH NARES PRN (21:31)
[2022-01-30] MEDS ORDERED: NITROGLYCERIN SL 0.4 MG TABLET SL PRN (21:31)
[2022-01-30] MEDS: cefTRIAXone 1,000 MG in SODIUM CHLORIDE 0.9% 100 ML IV SCH (22:45)
[2022-01-30] MEDS: FUROSEMIDE 40 MG TABLET PO SCH (22:45)
[2022-01-30] MEDS: PHENobarbital 30 MG TABLET PO SCH (22:56)
[2022-01-31] MEDS: ACETAMINOPHEN 325 MG TABLET PO PRN ×3 (03:05→23:02)
[2022-01-31 05:50] LABS: Basophils # 0.1 10*3/uL (0.0-0.2); Basophils % 1.6 % (0.0-0.8); Eosinophils # 0.4 10*3/uL (0.0-0.87); Eosinophils % 10.1 % (0.00-10.9); Hematocrit 32.5 VOL% (42.0-52.0); Hemoglobin 10.7 GM/DL (14.0-18.0); Immature Granulocytes % 0.3 %; Immature Granulocytes Absolute 0.01 #; Lymphocytes # 0.8 10*3/uL (1.4-4.0); Lymphocytes % 22.5 % (21.2-54.2); Mean Corpuscular HGB Conc 32.9 GM/DL (32-36); Mean Corpuscular Volume 105.2 FL (87-102); Mean Platelet Volume 11.4 FL (9.6-12.0); Monocytes # 0.4 10*3/uL (0.11-0.8); Monocytes % 10.1 % (1.7-12.7); Neutrophils % 55.4 % (38.7-73.9); Platelet Count 90 T/CUMM (130-400); Red Blood Count 3.09 MC/CUMM (3.8-5.5); Red Cell Distribution Width 14.6 % (9.3-17.3); White Blood Count 3.7 T/CUMM (4-12)
[2022-01-31] MEDS: LEVOTHYROXINE 100 MCG VIAL IV SCH (06:00)
[2022-01-31 06:13] LABS: Platelet Estimate Decreased
[2022-01-31 06:14] LABS: Albumin 3.4 G/DL (3.4-5.0); Bilirubin,Total 0.6 MG/DL (0.20-1.00); Calcium 8.3 MG/DL (8.5-10.1); Osmolality,Calculated 274.8 MOS/KG (273-304); Potassium 4.5 MMOL/L (3.5-5.1); Total Protein 7.2 G/DL (6.4-8.2)
[2022-01-31] MEDS ORDERED: ASPIRIN EC 81 MG TABLET PO SCH (08:00)
[2022-01-31] MEDS ORDERED: LEVOTHYROXINE 100 MCG TABLET PO SCH (09:00)
[2022-01-31] MEDS ORDERED: PHENOBARBITAL 64.8 MG PO SCH (12:00)
[2022-01-31] MEDS: levETIRAcetam 500 MG TABLET PO SCH ×2 (12:13→17:32)
[2022-01-31] MEDS: POTASSIUM CHLORIDE 20 MEQ TABLET PO SCH (12:14)
[2022-01-31] MEDS: PANTOPRAZOLE 40 MG TABLET PO SCH (12:14)
[2022-01-31] MEDS: FUROSEMIDE 40 MG TABLET PO SCH (12:14)
[2022-01-31] MEDS: ASPIRIN CHEW 81 MG TABLET PO SCH (12:14)
[2022-01-31] MEDS: ISOSORBIDE MONONITRATE 30 MG TABLET PO SCH (12:17)
[2022-01-31] MEDS: PHENobarbital 30 MG TABLET PO SCH ×2 (12:17→21:50)
[2022-01-31] MEDS: METOPROLOL TARTRATE 25 MG TABLET PO SCH ×2 (14:25→21:50)
[2022-01-31] MEDS: FUROSEMIDE 40 MG/4 ML VIAL IV SCH (15:22)
[2022-01-31] MEDS: SIMVASTATIN 20 MG TABLET PO SCH (21:50)
[2022-01-31] MEDS: cefTRIAXone 1,000 MG in SODIUM CHLORIDE 0.9% 100 ML IV SCH (21:57)
[2022-02-01 05:09] LABS: Basophils # 0.1 10*3/uL (0.0-0.2); Eosinophils # 0.3 10*3/uL (0.0-0.87); Eosinophils % 7.8 % (0.00-10.9); Hematocrit 28.7 VOL% (42.0-52.0); Hemoglobin 9.4 GM/DL (14.0-18.0); Immature Granulocytes % 0.3 %; Immature Granulocytes Absolute 0.01 #; Lymphocytes # 0.7 10*3/uL (1.4-4.0); Lymphocytes % 20.1 % (21.2-54.2); Mean Corpuscular HGB Conc 32.8 GM/DL (32-36); Mean Corpuscular Volume 105.9 FL (87-102); Mean Platelet Volume 11.1 FL (9.6-12.0); Monocytes # 0.4 10*3/uL (0.11-0.8); Monocytes % 11.2 % (1.7-12.7); Neutrophils % 58.6 % (38.7-73.9); Platelet Count 85 T/CUMM (130-400); Red Blood Count 2.71 MC/CUMM (3.8-5.5); Red Cell Distribution Width 14.6 % (9.3-17.3); White Blood Count 3.5 T/CUMM (4-12)
[2022-02-01 05:28] LABS: Albumin 3.1 G/DL (3.4-5.0); Bilirubin,Total 0.4 MG/DL (0.20-1.00); Calcium 8.4 MG/DL (8.5-10.1); Osmolality,Calculated 274.8 MOS/KG (273-304); Platelet Estimate Decreased; Potassium 4.3 MMOL/L (3.5-5.1); Total Protein 6.5 G/DL (6.4-8.2)
[2022-02-01] MEDS: ACETAMINOPHEN 325 MG TABLET PO PRN ×2 (07:12→17:24)
[2022-02-01] MEDS: LEVOTHYROXINE 100 MCG VIAL IV SCH (07:39)
[2022-02-01] MEDS: lisinopriL 10 MG TABLET PO SCH (09:22)
[2022-02-01] MEDS: ISOSORBIDE MONONITRATE 30 MG TABLET PO SCH (09:22)
[2022-02-01] MEDS: PANTOPRAZOLE 40 MG TABLET PO SCH (09:22)
[2022-02-01] MEDS: levETIRAcetam 500 MG TABLET PO SCH ×2 (09:22→16:38)
[2022-02-01] MEDS: METOPROLOL TARTRATE 25 MG TABLET PO SCH ×2 (09:22→21:58)
[2022-02-01] MEDS: POTASSIUM CHLORIDE 20 MEQ TABLET PO SCH (09:23)
[2022-02-01] MEDS: ASPIRIN CHEW 81 MG TABLET PO SCH (09:23)
[2022-02-01] MEDS: FUROSEMIDE 40 MG/4 ML VIAL IV SCH ×2 (09:23→16:38)
[2022-02-01] MEDS: methylPREDNISolone SOD SUC 40 MG/1 ML VIAL IV SCH ×2 (10:20→22:00)
[2022-02-01] MEDS: PHENobarbital 30 MG TABLET PO SCH ×2 (12:10→21:59)
[2022-02-01] MEDS: BUTALBITAL/ACETAMIN/CAFFEINE 50-325-40 MG TABLET PO PRN (21:58)
[2022-02-01] MEDS: SIMVASTATIN 20 MG TABLET PO SCH (21:58)
[2022-02-01] MEDS: cefTRIAXone 1,000 MG in SODIUM CHLORIDE 0.9% 100 ML IV SCH (21:59)
[2022-02-02] MEDS: BUTALBITAL/ACETAMIN/CAFFEINE 50-325-40 MG TABLET PO PRN (06:01)
[2022-02-02 06:07] LABS: Basophils % 0.9 % (0.0-0.8); Eosinophils % 0.9 % (0.00-10.9); Hematocrit 30.3 VOL% (42.0-52.0); Hemoglobin 10.1 GM/DL (14.0-18.0); Immature Granulocytes % 0.4 %; Immature Granulocytes Absolute 0.01 #; Lymphocytes # 0.3 10*3/uL (1.4-4.0); Lymphocytes % 12.9 % (21.2-54.2); Mean Corpuscular HGB Conc 33.3 GM/DL (32-36); Mean Corpuscular Volume 105.6 FL (87-102); Mean Platelet Volume 11.6 FL (9.6-12.0); Monocytes # 0.2 10*3/uL (0.11-0.8); Monocytes % 7.1 % (1.7-12.7); Neutrophils % 77.8 % (38.7-73.9); Platelet Count 83 T/CUMM (130-400); Red Blood Count 2.87 MC/CUMM (3.8-5.5); Red Cell Distribution Width 14.2 % (9.3-17.3); White Blood Count 2.3 T/CUMM (4-12)
[2022-02-02 06:27] LABS: Albumin 3.1 G/DL (3.4-5.0); Bilirubin,Total 0.4 MG/DL (0.20-1.00); Calcium 8.8 MG/DL (8.5-10.1); Osmolality,Calculated 270.2 MOS/KG (273-304); Potassium 4.2 MMOL/L (3.5-5.1)
[2022-02-02] MEDS ORDERED: LEVOTHYROXINE 100 MCG TABLET PO SCH (06:30)
[2022-02-02] MEDS: ASPIRIN CHEW 81 MG TABLET PO SCH (09:30)
[2022-02-02] MEDS: lisinopriL 10 MG TABLET PO SCH (09:31)
[2022-02-02] MEDS: FUROSEMIDE 40 MG/4 ML VIAL IV SCH (09:31)
[2022-02-02] MEDS: levETIRAcetam 500 MG TABLET PO SCH (09:31)
[2022-02-02] MEDS: POTASSIUM CHLORIDE 20 MEQ TABLET PO SCH (09:31)
[2022-02-02] MEDS: PANTOPRAZOLE 40 MG TABLET PO SCH (09:31)
[2022-02-02] MEDS: methylPREDNISolone SOD SUC 40 MG/1 ML VIAL IV SCH (09:32)
[2022-02-02 09:48] VITALS: BP 159/68
== END 2022-02-02 10:22 | disposition hospice, home (50) ==
LOC: N.ED 14:47 → N.EDINP 14:47 → N.TELES 20:42
PROVIDERS: ADMIT Family Medicine; ATTEND Family Medicine